=== PATIENT | male | born 1965 | race Caucasian/White ===

== ENCOUNTER → 2019-11-23 | Outpatient (CLI) | payer BC ==
[~2019-11-23] MED LIST: ALLO100T PO; AMLO25TA PO; IRONTAB3; TYLE325T5 PO
== END ==
LOC: M LABSMTC 09:07
PROVIDERS: ATTEND Anesthesiology
DX: Z03.818 Encounter for observation for suspected exposure to other biological agents ruled out (principal); Z11.59 Encounter for screening for other viral diseases
CPT/HCPCS: C9803; U0003

== ENCOUNTER 2019-11-26 09:02 | Day surgery (SDC) | payer OTHER ==
[~2019-11-26] VITALS: Ht 180.3 cm; Wt 139.3 kg
[~2019-11-26 09:02] MED LIST changes: +LIDOCAINE 2% 100MG/5ML SDV (FOR ANES.) As Ordered ONE; +NS 1,000 ML IV ONE; +propofoL 200 MG/20 ML VIAL As Ordered ONE
[2019-11-26] MEDS ORDERED: propofoL 200 MG/20 ML VIAL As Ordered ONE (10:31)
--- NOTE | 2019-11-26 11:12 | ROOR ---
Patient Name: Omar Brown Procedure Date: 11/26/2019 10:23 AM Date of : 1965 Age: 53 Room: [facility] Gender: Male Note Status: Finalized Procedure: Colonoscopy Indications: Screening patient at increased risk: Family history of 1st-degree relative with colorectal cancer at age 60 years (or older) Providers: Max Caba MD Referring MD: ERIC FLORES MD Requesting Provider: Medicines: Monitored Anesthesia Care Complications: No immediate complications. Procedure: Pre-Anesthesia Assessment: - Prior to the procedure, a History and Physical was performed, and patient medications and allergies were reviewed. The patient is competent. The risks and benefits of the procedure and the sedation options and risks were discussed with the patient. All questions were answered and informed consent was obtained. Patient identification and proposed procedure were verified by the physician, the nurse and the anesthesiologist in the procedure room. Mental Status Examination: alert and oriented. Airway Examination: normal oropharyngeal airway and neck mobility. Respiratory Examination: clear to auscultation. CV Examination: normal. Prophylactic Antibiotics: The patient does not require prophylactic antibiotics. Prior Anticoagulants: The patient has taken no previous anticoagulant or antiplatelet agents. ASA Grade Assessment: II - A patient with mild systemic disease. After reviewing the risks and benefits, the patient was deemed in satisfactory condition to undergo the procedure. The anesthesia plan was to use monitored anesthesia care (MAC). Immediately prior to administration of medications, the patient was re-assessed for adequacy to receive sedatives. The heart rate, respiratory rate, oxygen saturations, blood pressure, adequacy of pulmonary ventilation, and response to care were monitored throughout the procedure. The physical status of the patient was re-assessed after the procedure. The Colonoscope was introduced through the anus and advanced to the terminal ileum, with identification of the appendiceal orifice and IC valve. The colonoscopy was performed without difficulty. The patient tolerated the procedure well. The quality of the bowel preparation was good. The terminal ileum, ileocecal valve, appendiceal orifice, and rectum were photographed. Scope insertion time was 3 minutes. Scope withdrawal time was 9 minutes. The total duration of the procedure was 14 minutes. Findings: The perianal and digital rectal examinations were normal. The terminal ileum appeared normal. Three sessile polyps were found in the descending colon and ascending colon. The polyps were 6 to 8 mm in size. These polyps were removed with a cold snare. Resection and retrieval were complete. For hemostasis, one hemostatic clip was successfully placed. There was no bleeding at the end of the procedure. Verification of patient identification for the specimen was done by the physician and nurse using the patient's name, date and medical record number. Estimated blood loss was minimal. Multiple small and large-mouthed diverticula were found from sigmoid to ascending colon. There was no evidence of diverticular bleeding. Non-bleeding external and internal hemorrhoids were found during retroflexion. The hemorrhoids were large. Impression: - The examined portion of the ileum was normal. - Three 6 to 8 mm polyps in the descending colon and in the ascending colon, removed with a cold snare. Resected and retrieved. Clip was placed. - Moderate diverticulosis from sigmoid to ascending colon. There was no evidence of diverticular bleeding. - Non-bleeding external and internal hemorrhoids. Recommendation: - Patient has a contact number available for emergencies. The signs and symptoms of potential delayed complications were discussed with the patient. Return to normal activities tomorrow. Written discharge instructions were provided to the patient. - High fiber diet. - Continue present medications. - Use fiber, for example Citrucel, Fibercon, Konsyl or Metamucil. - Await pathology results. - Repeat colonoscopy in 3 - 5 years for surveillance based on pathology results. - Telephone GI clinic for pathology results in 2 weeks. - Return to primary care physician. Max Caba MD Max Caba MD 11/26/2019 11:11:30 AM Electronically signed by Max Caba MD Number of Addenda: 0 Note Initiated On: 11/26/2019 10:23 AM Estimated Blood Loss: Estimated blood loss was minimal.
[2019-11-26 11:30] VITALS: BP 148/86
== END 2019-11-26 11:40 | disposition home or self-care (01) ==
LOC: M OPP 09:02
PROVIDERS: ATTEND Internal Medicine Gastroenterology
DX: Z12.11 Encounter for screening for malignant neoplasm of colon (principal); Z80.0 Family history of malignant neoplasm of digestive organs; D12.2 Benign neoplasm of ascending colon; D12.4 Benign neoplasm of descending colon; K64.0 First degree hemorrhoids; K57.30 Diverticulosis of large intestine without perforation or abscess without bleeding; I10 Essential (primary) hypertension; J84.10 Pulmonary fibrosis, unspecified; G47.30 Sleep apnea, unspecified; Z79.899 Other long term (current) drug therapy

== ENCOUNTER → 2020-05-19 | Outpatient (CLI) | payer SELFPAY ==
[~2020-05-19] MED LIST changes: -LIDOCAINE 2% 100MG/5ML SDV (FOR ANES.) As Ordered ONE; -NS 1,000 ML IV ONE; -propofoL 200 MG/20 ML VIAL As Ordered ONE
== END ==
LOC: M LABSMTC 11:54
PROVIDERS: ATTEND Pediatrics
DX: Z20.828 Contact with and (suspected) exposure to other viral communicable diseases (principal)

== ENCOUNTER 2020-05-24 12:55 | Inpatient (IN) | payer OTHER ==
[~2020-05-24] VITALS: Ht 180.3 cm; Wt 137.8 kg
[2020-05-24] MEDS ORDERED: methylPREDNISolone 125MG 2ML VIAL IV ONE (14:15)
[2020-05-24 14:27] LABS: HEMATOCRIT 44.7 % (42.0-52.0); HEMOGLOBIN 14.5 g/dl (13.5-17.5); LYMPH # 0.5 10^3/uL (1.5-5.0); LYMPH % 10.7 % (24.0-44.0); MEAN CORPUSCULAR HEMOGLOBIN 30.3 pg (27.0-33.0); MEAN CORPUSCULAR HGB CONC 32.4 g/dl (32.0-36.5); MEAN CORPUSCULAR VOLUME 93.5 fl (80.0-96.0); MONO # 0.4 10^3/uL (0.0-0.8); MONO % 7.2 % (0.0-5.0); NEUTROPHILS % 81.7 % (36.0-66.0); PLATELET COUNT, AUTOMATED 127 10^3/uL (150-450); RED BLOOD COUNT 4.78 10^6/uL (4.30-6.10); WHITE BLOOD COUNT 4.9 10^3/uL (4.0-10.0)
[2020-05-24 14:39] LABS: INR 0.97; PROTHROMBIN TIME 13.1 SECONDS (12.5-14.3)
[2020-05-24 14:40] LABS: PARTIAL THROMBOPLASTIN TIME 32.7 SECONDS (24.2-38.5)
[2020-05-24 14:44] LABS: D-DIMER QUANT 1084.53 ng/ml (<500)
[2020-05-24 14:45] LABS: RSV AMPLIFICATION NEGATIVE (NEGATIVE)
[2020-05-24 14:57] LABS: ALBUMIN 3.5 GM/DL (3.2-5.2); BILIRUBIN,TOTAL 0.5 MG/DL (0.2-1.0); C REACTIVE PROTEIN QUANTITATIV 6.1 MG/DL (0.00-0.30); CALCIUM LEVEL 7.8 MG/DL (8.5-10.1); CREATININE FOR GFR 1.57 MG/DL (0.70-1.30); GLOMERULAR FILTRATION RATE 48.9 (>56); POTASSIUM SERUM 3.7 MEQ/L (3.5-5.1); TOTAL PROTEIN 7.2 GM/DL (6.4-8.2)
[2020-05-24] MEDS ORDERED: cefTRIAXone SOD 1 GM in D5W MINI-BAG PLUS 50 ML IV ONE (15:00)
[2020-05-24 15:12] LABS: CK-MB VALUE MASS 2.3 NG/ML (<3.6); CPK CREATINE PHOSPHOKINASE 793 U/L (39-308); FERRITIN 962 NG/ML (26-388); LDH LACTATE DEHYDROGENASE 378 U/L (87-241); MAGNESIUM LEVEL 2.3 MG/DL (1.8-2.4); MB/CK RELATIVE INDEX 0.29 (< OR =4); TROPONIN I < 0.02 NG/ML (< 0.10)
[2020-05-24] MEDS: COMBIVENT RESPIMAT 100-20MCG INHALER 4GM INH SCH ×2 (15:20→15:21)
--- NOTE | 2020-05-24 15:26 | REP ---
INDICATION: DYSPNEA/COUGH COMPARISON: None. TECHNIQUE: Portable AP view of the chest FINDINGS: Bilateral opacities primarily noted in the right mid lung and left lower lobe are appreciated. No effusion. No pneumothorax. Visualized portions of the mediastinum are grossly normal although evaluation is limited by portable technique, positioning and underpenetration. IMPRESSION: Bilateral opacities suggesting multifocal pneumonia. Correlation and follow-up is recommended. No prior examinations are available for comparison. <Electronically signed by Jesús Spencer > 05/24/20 [id number]
[2020-05-24] MEDS ORDERED: NS 1,000 ML IV ONE (15:30)
[2020-05-24] MEDS ORDERED: AZITHROMYCIN INJ 500 MG, VIAL MATE ADAPTER 1 EACH in D5W 250 ML IV ONE (16:00)
[2020-05-24] MEDS ORDERED: AMLO1TAB25 PO (16:06)
[2020-05-24] MEDS ORDERED: ZYLO300T6 PO (16:06)
[2020-05-24] MEDS ORDERED: ACET1TAB55 PO (16:07)
[2020-05-24] MEDS ORDERED: NS 1,000 ML IV SCH (17:45)
--- NOTE | 2020-05-24 18:51 | HPEPDOC ---
General Date of Admission May 24, 2020 Date of Service: May 24, 2020 Chief Complaint The patient is a 54-year-old male admitted with a reason for visit of SOB. Source: Patient History of Present Illness Mr. Brown is a 54 year old male with asthma here for worsening shortness of breath and fever who tested positive for COVID 19. 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 He believed he caught it from her. Otherwise, his respiratory symptoms started about 4 days prior to admission. He had worsening cough and dyspnea. He also reported an altered taste and poor oral intact. He started to have fever at home and he came to the ED. While in the ED, he desaturated down to 80% at room air. Currently requiring 6L of oxygen to maintain saturation. CXR demonstrates multifocal pneumonia and he was given ceftriaxone and azithromycin. Mr. Brown will be admitted for COVID pneumonia Home Medications Scheduled Allopurinol (Zyloprim) 300 Mg Tablet, 300 MG PO DAILY, (Reported) Amlodipine Besylate (Amlodipine Besylate) 10 Mg Tablet, 10 MG PO DAILY, (Reported) Scheduled PRN Acetaminophen (Acetaminophen) 325 Mg Tablet, 650 MG PO Q4H PRN for PAIN OR FEVER, (Reported) Allergies Coded Allergies: No Known Allergies (Unverified , 11/19/19) Past Medical History Medical History 1. Hypercholesterolemia 2. Hypertension 3. Exercised induced asthma 4. Sleep apnea 5. Scoliosis 6. Gout Surgical History 1. Colonoscopy x3 Family History Father: Cancer Mother: Cancer Social History * Smoker: Denies Alcohol: occationally (Last drink on ) Drugs: marijuana (Occasional) A-FIB/CHADSVASC A-FIB History Current/History of A-Fib/PAF?: No Review of Systems Constitutional: Reports: Fever Eyes: Reports: Redness ENT: Reports: Head Aches Skin: Denies: Rash Pulmonary: Reports: Dyspnea, Cough Cardiovascular: Reports: Chest Pain (when coughing) Gastrointestinal: Reports: Nausea, Diarrhea; Denies: Abdominal Pain Genitourinary: Denies: Dysuria Hematologic: Denies: Bruising Musculoskeletal: Denies: Joint Pain, Muscle Pain Neurological: Denies: Numbness Physical Examination General Exam: Positive: Alert, Cooperative Eye Exam: Positive: EOMI; Negative: Sclera icteric ENT Exam: Positive: Atraumatic Neck Exam: Positive: Supple Chest Exam: Positive: Rhonchi Heart Exam: Positive: Rate Normal, Regular Rhythm Abdomen Exam: Positive: Normal bowel sounds, Soft, Other (obese); Negative: Tenderness Extremity Exam: Positive: Edema (mild) Neuro Exam: Positive: Cranial Nerves 3-12 NL Psych Exam: Positive: Mental status NL, Mood NL Vital Signs Vital Signs Date Time Temp Pulse Resp B/P (MAP) Pulse Ox O2 Delivery O2 Flow Rate FiO2 05/24/20 15:30 88 120/70 (87) 94 Nasal Cannula 6.0 05/24/20 14:15 18 05/24/20 13:41 99.3 Laboratory Data Labs 24H Laboratory Tests 2 05/24/20 13:47: Anion Gap 8, Glomerular Filtration Rate 48.9L, Calcium Level 7.8L, Total Bilirubin 0.5, Aspartate Amino Transf (AST/SGOT) 79H, Alanine Aminotransferase (ALT/SGPT) 71, Alkaline Phosphatase 39L, C-Reactive Protein, Quantitative 6.10H, Total Protein 7.2, Albumin 3.5, Albumin/Globulin Ratio 0.9 05/24/20 13:52: Coronavirus (COVID-19)(PCR) POSITIVEA, Influenza Type A (RT-PCR) NEGATIVE, Influenza Type B (RT-PCR) NEGATIVE, Respiratory Syncytial Virus (PCR) NEGATIVE 05/24/20 13:53: Prothrombin Time 13.1, Prothromb Time International Ratio 0.97, Activated P artial Thromboplast Time 32.7, Fibrinogen 600H, D-Dimer, Quantitative 1084.53H 05/24/20 14:02: Lactic Acid Level 1.6, Magnesium Level 2.3, Ferritin 962H, Lactate Dehydrogenase 378H, Total Creatine Kinase 793H, Creatine Kinase MB 2.3, Creatine Kinase MB Relative Index 0.29, Troponin I < 0.02 05/24/20 14:18: Immature Granulocyte % (Auto) 0.4, Neutrophils (%) (Auto) 81.7H, Lymphocytes (%) (Auto) 10.7L, Monocytes (%) (Auto) 7.2H, Eosinophils (%) (Auto) 0.0, Basophils (%) (Auto) 0.0, Neutrophils # (Auto) 4.0, Lymphocytes # (Auto) 0.5L, Monocytes # (Auto) 0.4, Eosinophils # (Auto) 0.0, Basophils # (Auto) 0.0, Nucleated Red Blood Cells % (auto) 0.0 05/24/20 15:05: POC pH (Misc Panel) 7.407, POC Base Excess (Misc Panel) -6.0L, POC Saturated Percent O2 (Misc) 92L, POC pO2 (Misc Panel) 62.0L, POC pCO2 (Misc Panel) 30.2L, POC HCO3 (Misc Panel) 19.0L, POC Total CO2 (Misc Panel) 20.0L CBC/BMP Laboratory Tests 05/24/20 13:47 05/24/20 14:18 Microbiology Microbiology 05/24/20 Blood Culture, Received Pending Assessment/Plan Mr. Brown is a 54 year old male with asthma who is here for acute hypoxic respiratory failure secondary to COVID PNA. His respiratory symptoms symptoms started about 4 days prior to arrival in the ED. He desaturated to 80% at room air. He required 6 L nasal cannula. He will be given remdesivir, dexamethasone, and DVT ppx of Lovenox (D-dimer is 1080). X-ray demonstrated multifocal pneumonia. He'll be given ceftriaxone and azithromycin. Plan / VTE VTE Prophylaxis Ordered?: Yes Plan Plan 1. 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 Respiratory symptoms started 4 days prior to ED visit - Supplemental oxygen and supportive care - Remdesivir for 5 days, dexamethasone, Lovenox - Trend inflammatory markers 2. COVID PNA - CXR demonstrates multifocal pneumonia - On Rocephin and Azithromycin 3. JONATAN vs CKD - Unknown creatinine baseline - Creatinine on admission 1.57 - Avoid nephrotoxins and supportive care - IVF for 500L 4. Hypertension - Blood pressure controlled - Continue with amlodipine 5. Gout - No active disease - Continue allopurinol 6. DVT ppx - Lovenox ALEXANDRA OGODRICH DO May 24, 2020 16:23
[2020-05-24] MEDS ORDERED: REMDESIVIR 200 MG in NS 250 ML IV ONE (19:00)
[2020-05-24] MEDS ORDERED: COMBIVENT RESPIMAT 100-20MCG INHALER 4GM INH PRN (19:30)
[2020-05-24 20:15] VITALS: BP 136/81
[2020-05-24 20:30] VITALS: O2SAT 88
[2020-05-24] MEDS ORDERED: SODIUM CHLORIDE 0.9% INJ 10 ML SYR IV ONE (21:00)
[2020-05-25] VITALS (7 sets, daily range): BP systolic 148–177; BP diastolic 87–111
[2020-05-25] MEDS: ACETAMINOPHEN 325 MG TAB PO PRN (05:04)
--- NOTE | 2020-05-25 06:17 | ECGEPIP ---
[facility] - ED Test Date: 2020-05-24 Pat Name: ABHISHEK YEAGER Department: Room: - Gender: Male Bar Host: LUCILLE : 1965 Requested By: RAJAT BARDALES Order Number: [id number] Reading MD: Nura Grace Measurements Intervals [place] Rate: 98 P: -5 GA: 164 QRS: 45 QRSD: 113 T: 48 QT: 374 QTc: 479 Interpretive Statements SINUS RHYTHM MODERATE INTRAVENTRICULAR CONDUCTION DELAY POOR R WAVE PROGRESSION NONSPECIFIC ST T WAVE CHANGES PROLONGED QTC NO PRIOR ECG FOR COMPARISON Electronically Signed on 05-25-2020 6:17:24 EST by Nura Grace
[2020-05-25 07:39] LABS: BASO % 0.2 % (0.0-1.0); HEMOGLOBIN 14.1 g/dl (13.5-17.5); LYMPH # 0.4 10^3/uL (1.5-5.0); LYMPH % 8.4 % (24.0-44.0); MEAN CORPUSCULAR HEMOGLOBIN 30.7 pg (27.0-33.0); MEAN CORPUSCULAR HGB CONC 32.8 g/dl (32.0-36.5); MEAN CORPUSCULAR VOLUME 93.7 fl (80.0-96.0); MONO # 0.3 10^3/uL (0.0-0.8); MONO % 5.7 % (0.0-5.0); NEUTROPHILS # 3.8 10^3/uL (1.5-8.5); PLATELET COUNT, AUTOMATED 127 10^3/uL (150-450); RED BLOOD COUNT 4.59 10^6/uL (4.30-6.10); WHITE BLOOD COUNT 4.4 10^3/uL (4.0-10.0)
[2020-05-25 07:56] LABS: D-DIMER QUANT 863.47 ng/ml (<500)
[2020-05-25 08:00] LABS: BLOOD UREA NITROGEN 21 MG/DL (7-18); C REACTIVE PROTEIN QUANTITATIV 6.03 MG/DL (0.00-0.30); CALCIUM LEVEL 8.4 MG/DL (8.5-10.1); CARBON DIOXIDE LEVEL 23 MEQ/L (21-32); CHLORIDE LEVEL 109 MEQ/L (98-107); CREATININE FOR GFR 1.17 MG/DL (0.70-1.30); FERRITIN 944 NG/ML (26-388); GLOMERULAR FILTRATION RATE > 60.0 (>56); GLUCOSE, FASTING 175 MG/DL (70-100); MAGNESIUM LEVEL 2.4 MG/DL (1.8-2.4); POTASSIUM SERUM 3.4 MEQ/L (3.5-5.1); SODIUM LEVEL 140 MEQ/L (136-145)
[2020-05-25] MEDS: dexameTHASONE 4 MG/ML 1ML VIAL (J1100 PER 1MG) IV SCH (08:31)
[2020-05-25] MEDS: allopurinoL 300 MG TAB PO SCH (08:31)
[2020-05-25] MEDS: amLODIPine 10 MG TAB PO SCH (08:31)
[2020-05-25] MEDS ORDERED: ENOXAPARIN 40MG/0.4ML SYRINGE (J1650 PER 10MG) SC SCH (09:00)
[2020-05-25] MEDS ORDERED: POTASSIUM CHLORIDE 10% LIQ 20 MEQ/15 ML UDC PO ONE (09:00)
--- NOTE | 2020-05-25 12:46 | IPNPDOC ---
Subjective Date Seen The patient was seen on 05/25/20. Subjective Chief Complaint/HPI OBJECTIVE: The patient has more appetite today and ate a little bit of breakfast. He was able to be weaned from 15L Ventimask to 12L and satting at 88%. He does desat to lower 80s w/ exertion. I spoke with patient about trying awake proning for as long as he can tolerate and he is willing to try it. No acute events overnight reported by nursing or patient. He denies fever, chills, abdominal discomfort. PHYSICAL EXAM: VS: see below. Currently on 12L Ventimask satting 88% Constitutional: Awake and alert, in no apparent distress ENT: Sclera are clear. Mucosa is moist. Respiratory: No wheezing, rhonci or rales. Cardiovascular: Regular heart rate no murmurs Gastrointestinal: Abdomen is soft, non distended, non tender, BS present. Musculoskeletal: No lower extremity edema. R Neurologic: No focal neurological deficit. AAO x3, normal affect Skin: Warm, dry, no cyanosis or clubbing IMAGING: see below. CXR demonstrates multifocal pneumonia LABS: see below ASSESSMENT AND PLAN Mr. Brown is a 54 year old male with asthma who is here for acute hypoxic respiratory failure secondary to COVID PNA. His respiratory symptoms symptoms started about 4 days prior to arrival in the ED. He desaturated to 80% at room air. He required 6 L nasal cannula. He will be given remdesivir, dexamethasone, and DVT ppx of Lovenox (D-dimer is 1080). X-ray demonstrated multifocal pneumonia. He'll be given ceftriaxone and azithromycin. #Acute hypoxic respiratory failure secondary to COVID PNA - Respiratory symptoms started 4 days prior to ED visit - Supplemental oxygen and supportive care - C/w Remdesivir (day 1) - C/w dexamethasone - C/w trending inflammatory markers - C/w Rocephin and Azithromycin - will repeat a COVID PCR test tomorrow - Will continue to do awake proning as much as pt can tolerate #Asthma - suspect that COVID PNA may exacerbate his asthma; however, no wheezing appreciated on exam - Will c/w home meds - Will continue to monitor O2 saturations - C/w with steroids #JONATAN vs CKD (resolved) - Unknown creatinine baseline - Creatinine on admission 1.57; today's Cr 1.17 - Will D/C fluids today - Avoid nephrotoxins and supportive care - IVF for 500L #Hypertension - Blood pressure controlled - C/w with amlodipine 5. Gout - No active disease - C/w home med allopurinol DVT ppx: lovenox GI ppx: protonix Fluids: none Diet: 2g Na Code status: Full Disposition: C/w proning and wean O2 as tolerated. Saturations improving with proning. Objective Physical Examination General Exam: Positive: Alert, Cooperative Eye Exam: Positive: EOMI; Negative: Sclera icteric ENT Exam: Positive: Atraumatic Neck Exam: Positive: Supple Chest Exam: Positive: Rhonchi Heart Exam: Positive: Rate Normal, Regular Rhythm Abdomen Exam: Positive: Normal bowel sounds, Soft, Other (obese); Negative: Tenderness Extremity Exam: Positive: Edema (mild) Neuro Exam: Positive: Cranial Nerves 3-12 NL Psych Exam: Positive: Mental status NL, Mood NL Assessment /Plan Plan/VTE VTE Prophylaxis Ordered?: Yes VS, I&O, 24H, Fishbone Vital Signs/I&O Vital Signs Date Time Temp Pulse Resp B/P (MAP) Pulse Ox O2 Delivery O2 Flow Rate FiO2 05/25/20 08:31 77 162/92 05/25/20 04:51 99.8 20 90 Venturi Mask 15.0 I&O- Last 24 Hours up to 6 AM 05/25/20 06:00 Intake Total 760 ml Output Total 275 ml Balance 485 ml Laboratory Data 24H LABS Laboratory Tests 2 05/24/20 13:47: Anion Gap 8, Glomerular Filtration Rate 48.9L, Calcium Level 7.8L, Total Bilirubin 0.5, Aspartate Amino Transf (AST/SGOT) 79H, Alanine Aminotransferase (ALT/SGPT) 71, Alkaline Phosphatase 39L, C-Reactive Protein, Quantitative 6.10H, Total Protein 7.2, Albumin 3.5, Albumin/Globulin Ratio 0.9 05/24/20 13:52: Coronavirus (COVID-19)(PCR) POSITIVEA, Influenza Type A (RT-PCR) NEGATIVE, Influenza Type B (RT-PCR) NEGATIVE, Respiratory Syncytial Virus (PCR) NEGATIVE 05/24/20 13:53: Prothrombin Time 13.1, Prothromb Time International Ratio 0.97, Activated Partial Thromboplast Time 32.7, Fibrinogen 600H, D-Dimer, Quantitative 1084.53H 05/24/20 14:02: Lactic Acid Level 1.6, Magnesium Level 2.3, Ferritin 962H, Lactate Dehydrogenase 378H, Total Creatine Kinase 793H, Creatine Kinase MB 2.3, Creatine Kinase MB Relative Index 0.29, Troponin I < 0.02, Procalcitonin 0.13 05/24/20 14:18: Immature Granulocyte % (Auto) 0.4, Neutrophils (%) (Auto) 81.7H, Lymphocytes (%) (Auto) 10.7L, Monocytes (%) (Auto) 7.2H, Eosinophils (%) (Auto) 0.0, Basophils (%) (Auto) 0.0, Neutrophils # (Auto) 4.0, Lymphocytes # (Auto) 0.5L, Monocytes # (Auto) 0.4, Eosinophils # (Auto) 0.0, Basophils # (Auto) 0.0, Nucleated Red Blood Cells % (auto) 0.0 05/24/20 15:05: POC pH (Misc Panel) 7.407, POC Base Excess (Misc Panel) -6.0L, POC Saturated Percent O2 (Misc) 92L, POC pO2 (Misc Panel) 62.0L, POC pCO2 (Misc Panel) 30.2L, POC HCO3 (Misc Panel) 19.0L, POC Total CO2 (Misc Panel) 20.0L 05/24/20 18:47: UA-Zgk-C-Type Natriuretic Peptide 70 05/25/20 06:51: Immature Granulocyte % (Auto) 0.7, Neutrophils (%) (Auto) 85.0H, Lymphocytes (%) (Auto) 8.4L, Monocytes (%) (Auto) 5.7H, Eosinophils (%) (Auto) 0.0, Basophils ( %) (Auto) 0.2, Neutrophils # (Auto) 3.8, Lymphocytes # (Auto) 0.4L, Monocytes # (Auto) 0.3, Eosinophils # (Auto) 0.0, Basophils # (Auto) 0.0, Nucleated Red Blood Cells % (auto) 0.0, Fibrinogen 624H, D-Dimer, Quantitative 863.47H, Anion Gap 8, Glomerular Filtration Rate > 60.0, Calcium Level 8.4L, Magnesium Level 2.4, Ferritin 944H, C-Reactive Protein, Quantitative 6.03H CBC/BMP Laboratory Tests 05/24/20 13:47 05/24/20 14:18 05/25/20 06:51 Microbiology Microbiology 05/24/20 Blood Culture, Received Pending 05/24/20 Blood Culture, Received Pending GME ATTESTATION GME ATTESTATION My faculty preceptor for this patient encounter was physically present during the encounter and was fully available. All aspects of the patient interview, examination, medical decision making process, and medical care plan development were reviewed and approved by the faculty preceptor. The faculty preceptor is aware and concurs with the plan as stated in the body of this note and will attest to such by his/her cosignature. ATTENDING NOTE I, Ronald Walden MD, have independently examined this patient and performed my own physical exam, as well as reviewed the documentation and edited where tenisha price. I have discussed in detail with the resident / student the findings and plan of treatment as documented by the resident / student and edited their note. I agree with their findings and treatment plan and have edited their documentation. Stanford Ferrer DO May 25, 2020 09:07 RONALD WALDEN MD May 28, 2020 15:03
[2020-05-25] MEDS: cefTRIAXone SOD 1 GM in D5W MINI-BAG PLUS 50 ML IV SCH (16:26)
[2020-05-25] MEDS ORDERED: AZITHROMYCIN INJ 500 MG, VIAL MATE ADAPTER 1 EACH in D5W 250 ML IV SCH (16:40)
[2020-05-25] MEDS: REMDESIVIR 100 MG in NS 250 ML IV SCH (19:35)
[2020-05-25] MEDS ORDERED: clonazePAM 0.5 MG TAB PO ONE ×2 (20:15→20:30)
[2020-05-25] MEDS: SODIUM CHLORIDE 0.9% INJ 10 ML SYR IV SCH (20:45)
[2020-05-25] MEDS ORDERED: ENOXAPARIN 80MG/0.8ML SYRINGE (J1650 PER 10MG) SC SCH (22:00)
[2020-05-25 23:10] LABS: ABG BASE EXCESS -1.9 (-2.0-2.0); ABG HCO3 19.1 MEQ/L (22.0-26.0); ABG O2 SATURATION 91.1 % (95.0-99.0); ABG PARTIAL PRESSURE CO2 24.7 mmHg (35.0-45.0); ABG PARTIAL PRESSURE O2 54.8 mmHg (75.0-100.0); ABG STANDARD HCO3 22.7 MEQ/L (22.0-26.0); ABG TOTAL CO2 19.9 MEQ/L (22.0-29.0); ABG pH (ARTERIAL) 7.507 UNITS (7.350-7.450)
[2020-05-26] VITALS (18 sets, daily range): BP systolic 126–205; BP diastolic 75–111; O2SAT 88–90
[2020-05-26] MEDS ORDERED: LABETALOL 100MG/20ML VIAL IV PRN (00:30)
[2020-05-26] MEDS ORDERED: ONDANSETRON 4MG/2ML VIAL IV ONE (01:45)
[2020-05-26 05:18] LABS: BASO % 0.1 % (0.0-1.0); HEMATOCRIT 45.1 % (42.0-52.0); HEMOGLOBIN 14.7 g/dl (13.5-17.5); LYMPH # 0.5 10^3/uL (1.5-5.0); LYMPH % 5.5 % (24.0-44.0); MEAN CORPUSCULAR HEMOGLOBIN 30.1 pg (27.0-33.0); MEAN CORPUSCULAR HGB CONC 32.6 g/dl (32.0-36.5); MEAN CORPUSCULAR VOLUME 92.4 fl (80.0-96.0); MONO # 0.6 10^3/uL (0.0-0.8); MONO % 5.7 % (0.0-5.0); NEUTROPHILS # 8.7 10^3/uL (1.5-8.5); NEUTROPHILS % 88.3 % (36.0-66.0); PLATELET COUNT, AUTOMATED 194 10^3/uL (150-450); RED BLOOD COUNT 4.88 10^6/uL (4.30-6.10); WHITE BLOOD COUNT 9.8 10^3/uL (4.0-10.0)
[2020-05-26 05:53] LABS: BLOOD UREA NITROGEN 20 MG/DL (7-18); CALCIUM LEVEL 8.3 MG/DL (8.5-10.1); CARBON DIOXIDE LEVEL 23 MEQ/L (21-32); CHLORIDE LEVEL 112 MEQ/L (98-107); CREATININE FOR GFR 1.17 MG/DL (0.70-1.30); FERRITIN 973 NG/ML (26-388); GLOMERULAR FILTRATION RATE > 60.0 (>56); GLUCOSE, FASTING 182 MG/DL (70-100); MAGNESIUM LEVEL 2.1 MG/DL (1.8-2.4); SODIUM LEVEL 142 MEQ/L (136-145)
[2020-05-26 05:59] LABS: D-DIMER QUANT 1209.52 ng/ml (<500)
[2020-05-26] MEDS: allopurinoL 300 MG TAB PO SCH (08:07)
[2020-05-26] MEDS: amLODIPine 10 MG TAB PO SCH (08:07)
[2020-05-26] MEDS: dexameTHASONE 4 MG/ML 1ML VIAL (J1100 PER 1MG) IV SCH (08:07)
[2020-05-26] MEDS ORDERED: FUROSEMIDE 20MG/2ML VIAL (J1940) IV ONE (11:30)
[2020-05-26] MEDS ORDERED: ENOXAPARIN 40MG/0.4ML SYRINGE (J1650 PER 10MG) SC SCH (12:00)
[2020-05-26 12:18] LABS: ABG BASE EXCESS -2.1 (-2.0-2.0); ABG HCO3 20.6 MEQ/L (22.0-26.0); ABG O2 SATURATION 87.2 % (95.0-99.0); ABG PARTIAL PRESSURE CO2 30.2 mmHg (35.0-45.0); ABG PARTIAL PRESSURE O2 50.1 mmHg (75.0-100.0); ABG STANDARD HCO3 22.5 MEQ/L (22.0-26.0); ABG TOTAL CO2 21.5 MEQ/L (22.0-29.0); ABG pH (ARTERIAL) 7.451 UNITS (7.350-7.450)
[2020-05-26] MEDS: ACETAMINOPHEN 325 MG TAB PO PRN (16:37)
[2020-05-26] MEDS: cefTRIAXone SOD 1 GM in D5W MINI-BAG PLUS 50 ML IV SCH (16:38)
[2020-05-26] MEDS ORDERED: AZITHROMYCIN INJ 500 MG, VIAL MATE ADAPTER 1 EACH in D5W 250 ML IV SCH (17:00)
--- NOTE | 2020-05-26 18:17 | IPNPDOC ---
Subjective Date Seen The patient was seen on 05/26/20. Subjective Chief Complaint/HPI OBJECTIVE: The overnight team reports that he desatted to low 80s on max vapotherm overnight and transferred him to the ICU for BIPAP. This am, he's satting at 95% on BIPAP machine with IPAP/EPAP settings of 20/10. Per nursing, he desaturates very quickly to the 60s-70s when the BIPAP is taken off for med adminstration. He was also tried on vapotherm again, but could not sustain his saturations above 88%. Patient is currently compliant with the BIPAP machine and also attempting to lay in a decubitus position since he's not able to tolerate proning on his stomach with the machine. He denies any CP, fever, chills, N/V/D. I have called patient's (Monica Brown) and updated her on his disposition. PHYSICAL EXAM: VS: see below. BIPAP Constitutional: Awake and alert and oriented x3, NAD, no accessory muscle use ENT: Sclera are clear. Mucosa is moist. Respiratory: No wheezing, rhonci or rales appreciated Cardiovascular: Regular heart rate no murmurs, gallops, rubs Gastrointestinal: Abdomen is obese, soft, non distended, non tender, BS present Musculoskeletal: No lower extremity edema, full ROM throughout Neurologic: No focal neurological deficit. Normal affect Skin: Warm, dry, no cyanosis or clubbing IMAGING: see below LABS: see below ASSESSMENT AND PLAN This is a 54 year old male with a PMHx of Asthma, who presented to [facility] ER due to worsening SOB and subjective fever. He reports that his symptoms presented 4 day s prior to his arrival in the ED and states that his caught COVID 19 and tested positive so he may have gotten exposed that way. He desats to 80s on RA and was intially able to maintain saturations over 90% with 6L NC. He was started on IV dexamethasone, remdesivir and abx given that his XR also shows multifocal PNA. He continues to require more oxygenation and was satting in the 80% on max setting of vapotherm and the decision was made to transfer the patient to the ICU and have pulmonology on board for further recommendations. He was put on BIPAP and has been satting over 90% ; however, he desats very quickly to 60s-70s when BIPAP is taken off for medication administration. He is enco uraged to continue awake proning; however, he is not very cooperative with awake proning but is willing to try laying in a lateral decubitus position. #Acute hypoxic respiratory failure secondary to COVID PNA - Currently tolerating BIPAP with current settings of: - Will order an ABG - Respiratory symptoms started 4 days prior to ED visit - Supplemental oxygen and supportive care - C/w Remdesivir (day 2) - C/w dexamethasone (day 2) - Will order IV lasix 20mg X1 dose - D-DIMER increased slightly; will continue trending inflammatory markers - C/w Rocephin and Azithromycin - Will continue to do awake proning as much as pt can tolerate - Therapeutic lovenox 70mg BID for anticog #Hypertension - He was hypertensive this am 155/93; IV labetelol given - C/w PO norvasc and amlodipine #Asthma - Not in acute exacerbation - C/w Combivent PRN - C/w with dexamethasone #JONATAN vs CKD (resolved) - Unknown creatinine baseline - Creatinine on admission 1.57; today's Cr 1.17 - Avoid nephrotoxins and supportive care #Gout - No active disease - C/w home med allopurinol DVT ppx: lovenox 70mg BID GI ppx: protonix Fluids: none Diet: 2g Na Code status: Full Disposition: Continue BIPAP and encourage proning as much as possible. Will continue to trend inflammatory markers. Objective Physical Examination General Exam: Positive: Alert, Cooperative Eye Exam: Positive: EOMI; Negative: Sclera icteric ENT Exam: Positive: Atraumatic Neck Exam: Positive: Supple Chest Exam: Positive: Rhonchi Heart Exam: Positive: Rate Normal, Regular Rhythm Abdomen Exam: Positive: Normal bowel sounds, Soft, Other (obese); Negative: Tenderness Extremity Exam: Positive: Edema (mild) Neuro Exam: Positive: Cranial Nerves 3-12 NL Psych Exam: Positive: Mental status NL, Mood NL Assessment /Plan Plan/VTE VTE Prophylaxis Ordered?: Yes VS, I&O, 24H, Fishbone Vital Signs/I&O Vital Signs Date Time Temp Pulse Resp B/P (MAP) Pulse Ox O2 Delivery O2 Flow Rate FiO2 05/26/20 17:08 90 05/26/20 12:00 98.1 106 29 127/75 (92) 85 NIPPV (BIPAP/CPAP) 05/25/20 20:00 35.0 I&O- Last 24 Hours up to 6 AM 05/26/20 06:00 Intake Total 1115 ml Output Total 750 ml Balance 365 ml Laboratory Data 24H LABS Laboratory Tests 2 05/25/20 23:00: Blood Gas Bicarbonate Standard 22.7, Arterial Blood pH 7.507H, Arterial Blood Partial Pressure CO2 24.7L, Arterial Blood Partial Pressure O2 54.8L, Arterial Blood Total CO2 19.9L, Arterial Blood HCO3 19.1L, Arterial Blood Base Excess - 1.9, Arterial Blood Oxygen Saturation 91.1L 05/26/20 05:12: Immature Granulocyte % (Auto) 0.4, Neutrophils (%) (Auto) 88.3H, Lymphocytes (%) (Auto) 5.5L, Monocytes (%) (Auto) 5.7H, Eosinophils (%) (Auto) 0.0, Basophils (%) (Auto) 0.1, Neutrophils # (Auto) 8.7H, Lymphocytes # (Auto) 0.5L, Monocytes # (Auto) 0.6, Eosinophils # (Auto) 0.0, Basophils # (Auto) 0.0, Nucleated Red B lood Cells % (auto) 0.0, Fibrinogen 572H, D-Dimer, Quantitative 1209.52H, Anion Gap 7L, Glomerular Filtration Rate > 60.0, Calcium Level 8.3L, Magnesium Level 2.1, Ferritin 973H, C-Reactive Protein, Quantitative 4.20H, Procalcitonin 0.09 05/26/20 12:06: Blood Gas Bicarbonate Standard 22.5, Arterial Blood pH 7.451H, Arterial Blood Partial Pressure CO2 30.2L, Arterial Blood Partial Pressure O2 50.1L, Arterial Blood Total CO2 21.5L, Arterial Blood HCO3 20.6L, Arterial Blood Base Excess - 2.1L, Arterial Blood Oxygen Saturation 87.2L CBC/BMP Laboratory Tests 05/26/20 05:12 Microbiology Microbiology 05/24/20 Blood Culture - Preliminary, Resulted No growth after 24 hours . All specim... 05/24/20 Blood Culture - Preliminary, Resulted No Growth after 48 hours. All Specime... GME ATTESTATION GME ATTESTATION My faculty preceptor for this patient encounter was physically present during t he encounter and was fully available. All aspects of the patient interview, examination, medical decision making process, and medical care plan development were reviewed and approved by the faculty preceptor. The faculty preceptor is aware and concurs with the plan as stated in the body of this note and will attest to such by his/her cosignature. ATTENDING NOTE I, Ronald Walden MD, have independently examined this patient and performed my own physical exam, as well as reviewed the documentation and edited where necessary. I have discussed in detail with the resident / student the findings and plan of treatment as documented by the resident / student and edited their note. I agree with their findings and treatment plan and have edited their documentation. Stanford Ferrer DO May 26, 2020 17:23 RONALD WALDEN MD May 28, 2020 15:03
[2020-05-26] MEDS: ENOXAPARIN 80MG/0.8ML SYRINGE (J1650 PER 10MG) SC SCH (19:36)
[2020-05-26] MEDS: REMDESIVIR 100 MG in NS 250 ML IV SCH (19:36)
[2020-05-26] MEDS: SODIUM CHLORIDE 0.9% INJ 10 ML SYR IV SCH (20:37)
[2020-05-27] VITALS: BP 147/92
[2020-05-27 04:00] VITALS: BP 165/99
[2020-05-27 05:11] LABS: BASO % 0.2 % (0.0-1.0); HEMATOCRIT 47.4 % (42.0-52.0); HEMOGLOBIN 15.2 g/dl (13.5-17.5); LYMPH # 0.6 10^3/uL (1.5-5.0); LYMPH % 6.3 % (24.0-44.0); MEAN CORPUSCULAR HEMOGLOBIN 30.2 pg (27.0-33.0); MEAN CORPUSCULAR HGB CONC 32.1 g/dl (32.0-36.5); MEAN CORPUSCULAR VOLUME 94.2 fl (80.0-96.0); MONO # 0.6 10^3/uL (0.0-0.8); MONO % 6.1 % (0.0-5.0); NEUTROPHILS # 8.8 10^3/uL (1.5-8.5); NEUTROPHILS % 86.5 % (36.0-66.0); PLATELET COUNT, AUTOMATED 207 10^3/uL (150-450); RED BLOOD COUNT 5.03 10^6/uL (4.30-6.10); WHITE BLOOD COUNT 10.1 10^3/uL (4.0-10.0)
[2020-05-27 05:35] LABS: D-DIMER QUANT 1185.56 ng/ml (<500)
[2020-05-27 05:39] LABS: BLOOD UREA NITROGEN 25 MG/DL (7-18); C REACTIVE PROTEIN QUANTITATIV 5.19 MG/DL (0.00-0.30); CALCIUM LEVEL 7.9 MG/DL (8.5-10.1); CARBON DIOXIDE LEVEL 31 MEQ/L (21-32); CHLORIDE LEVEL 111 MEQ/L (98-107); CREATININE FOR GFR 1.27 MG/DL (0.70-1.30); FERRITIN 997 NG/ML (26-388); GLOMERULAR FILTRATION RATE > 60.0 (>56); GLUCOSE, FASTING 152 MG/DL (70-100); MAGNESIUM LEVEL 2.4 MG/DL (1.8-2.4); POTASSIUM SERUM 4.2 MEQ/L (3.5-5.1); SODIUM LEVEL 145 MEQ/L (136-145)
[2020-05-27 08:00] VITALS: BP 122/58
[2020-05-27] MEDS: dexameTHASONE 4 MG/ML 1ML VIAL (J1100 PER 1MG) IV SCH (08:10)
[2020-05-27] MEDS: allopurinoL 300 MG TAB PO SCH (08:10)
[2020-05-27] MEDS: amLODIPine 10 MG TAB PO SCH (08:13)
[2020-05-27] MEDS: ENOXAPARIN 80MG/0.8ML SYRINGE (J1650 PER 10MG) SC SCH ×2 (08:13→19:38)
[2020-05-27] MEDS ORDERED: CISATRACURIUM 200 MG in NS 480 ML IV SCH (08:45)
[2020-05-27 12:00] VITALS: BP 148/94
--- NOTE | 2020-05-27 13:08 | IPNPDOC ---
Text Note Date of Service The patient was seen on 05/27/20. NOTE SUBJECTIVE: -Remains on BIPAP on 100% FiO2 at 20/10 -Afebrile PHYSICAL EXAM: VS: see below. BIPAP at 100% FiO2 and 20/10 Constitutional: NAD, alert, awake ENT: Sclera are clear. Mucosa is moist. Respiratory: No wheezing, rhonchi or rales appreciated, diminished breath sounds throughout Cardiovascular: Regular heart rate no murmurs, gallops, rubs Gastrointestinal: Abdomen is obese, normoactive sounds, soft, non distended, non tender Musculoskeletal: No lower extremity edema, full ROM throughout Neurologic: No focal neurological deficit. Skin: Warm, dry, no cyanosis or clubbing IMAGING: see below LABS: reviewed. see below ASSESSMENT: 54 year old M with a history of asthma and morbid obesity who is admitted for COVID-19 PNA with severe hypoxemic respiratory failure. #Acute hypoxic respiratory failure secondary to COVID PNA with a history of asthma - Currently tolerating BIPAP with current settings of: 20/10 at 100% FiO2. Because BiPAP setting are high and FiO2 is already at 100%, will discuss case with Dr. Rasmussen, as I would like to proactively consult pulm with the next and only option would be intubation if hypoxemia worsens. - C/w Remdesivir (day 3) - C/w dexamethasone (day 3) - Continue trending inflammatory markers - C/w Rocephin but will consider discontinuing given negative procalcitonin. Trending procalcitonin - Lovenox 70mg BID for anticog. Despite no evidence of actual PE, in speaking with Dr. Walden, Dr. Rasmussen had strongly recommended fully anticoagulating given the severe HRF - encourage awake proning as much as possibly tolerated #Hypertension - C/w PO norvasc and amlodipine #Asthma - Not in acute exacerbation - C/w Combivent PRN - C/w with dexamethasone #JONATAN vs CKD (resolved) - Avoid nephrotoxins and supportive care #Gout - No active disease - C/w home med allopurinol DVT ppx: lovenox 70mg BID GI ppx: protonix Fluids: none Diet: 2g Na Code status: Full Disposition: ICU to continue BIPAP and encourage awake proning as much as possibly tolerated VS,Fishbone, I+O VS, Fishbone, I+O Laboratory Tests 05/27/20 05:02 Vital Signs Date Time Temp Pulse Resp B/P (MAP) Pulse Ox O2 Delivery O2 Flow Rate FiO2 05/27/20 08:13 101 122/58 05/27/20 04:00 99.1 26 91 NIPPV (BIPAP/CPAP) 100 05/25/20 20:00 35.0 I&O- Last 24 Hours up to 6 AM 05/27/20 06:00 Intake Total 795 ml Output Total 1000 ml Balance -205 ml MINERVA ONEIL MD May 27, 2020 09:37
[2020-05-27] MEDS: cefTRIAXone SOD 1 GM in D5W MINI-BAG PLUS 50 ML IV SCH (16:00)
[2020-05-27] MEDS: REMDESIVIR 100 MG in NS 250 ML IV SCH (19:37)
[2020-05-27 20:00] VITALS: BP 160/86
[2020-05-27] MEDS: SODIUM CHLORIDE 0.9% INJ 10 ML SYR IV SCH (21:29)
[2020-05-28] VITALS (8 sets, daily range): BP systolic 133–178; BP diastolic 89–106; O2SAT 88–91
[2020-05-28 05:42] LABS: BASO % 0.1 % (0.0-1.0); HEMATOCRIT 47.1 % (42.0-52.0); HEMOGLOBIN 15.3 g/dl (13.5-17.5); LYMPH # 0.4 10^3/uL (1.5-5.0); LYMPH % 3.3 % (24.0-44.0); MEAN CORPUSCULAR HEMOGLOBIN 30.7 pg (27.0-33.0); MEAN CORPUSCULAR HGB CONC 32.5 g/dl (32.0-36.5); MEAN CORPUSCULAR VOLUME 94.6 fl (80.0-96.0); MONO # 0.5 10^3/uL (0.0-0.8); MONO % 3.8 % (0.0-5.0); NEUTROPHILS % 91.7 % (36.0-66.0); PLATELET COUNT, AUTOMATED 248 10^3/uL (150-450); RED BLOOD COUNT 4.98 10^6/uL (4.30-6.10)
[2020-05-28 06:10] LABS: ALBUMIN 3.1 GM/DL (3.2-5.2); ALT/SGPT 94 U/L (12-78); BILIRUBIN,TOTAL 0.8 MG/DL (0.2-1.0); BLOOD UREA NITROGEN 27 MG/DL (7-18); C REACTIVE PROTEIN QUANTITATIV 5.45 MG/DL (0.00-0.30); CALCIUM LEVEL 8.5 MG/DL (8.5-10.1); CARBON DIOXIDE LEVEL 26 MEQ/L (21-32); CHLORIDE LEVEL 109 MEQ/L (98-107); CHOLESTEROL LEVEL 90 MG/DL (< 200); CPK CREATINE PHOSPHOKINASE 351 U/L (39-308); CREATININE FOR GFR 1.18 MG/DL (0.70-1.30); FERRITIN 1292 NG/ML (26-388); GLOMERULAR FILTRATION RATE > 60.0 (>56); GLUCOSE, FASTING 144 MG/DL (70-100); LDH LACTATE DEHYDROGENASE 719 U/L (87-241); MAGNESIUM LEVEL 2.3 MG/DL (1.8-2.4); POTASSIUM SERUM 3.7 MEQ/L (3.5-5.1); SODIUM LEVEL 141 MEQ/L (136-145); TOTAL PROTEIN 7.9 GM/DL (6.4-8.2); TRIGLYCERIDES LEVEL 118 MG/DL (<150)
[2020-05-28 06:12] LABS: D-DIMER QUANT 1895.56 ng/ml (<500)
[2020-05-28] MEDS: amLODIPine 10 MG TAB PO SCH (07:38)
[2020-05-28] MEDS: allopurinoL 300 MG TAB PO SCH (07:38)
[2020-05-28] MEDS: ENOXAPARIN 80MG/0.8ML SYRINGE (J1650 PER 10MG) SC SCH ×2 (07:39→20:16)
--- NOTE | 2020-05-28 10:37 | REP ---
INDICATION: worsening hypoxemia COMPARISON: 05/24/2020 TECHNIQUE: Portable AP view of the chest FINDINGS: Examination is limited by portable technique, underpenetration and poor inspiratory effort as well as positioning. Increased opacities are suspected in the left mid lung zone. Underlying opacities in the right midlung zone and left perihilar/infrahilar region again noted. No obvious effusion. No pneumothorax. IMPRESSION: Bilateral opacities appear somewhat increased in the left mid lung zone. <Electronically signed by Jesús Spencer > 05/28/20 1036
[2020-05-28] MEDS: dexameTHASONE 20MG/5ML VIAL (J1100 PER 1MG) IV SCH (11:08)
[2020-05-28] MEDS ORDERED: guaiFENesin SYRUP 200 MG/10 ML UDC PO PRN (11:30)
--- NOTE | 2020-05-28 12:35 | CCN ---
CRITICAL CARE NOTE DATE: 05/28/2020 The patient is seen in the intensive care unit. This is hospital day #4, symptom complex day #8. He is on noninvasive ventilation but is awake and interactive. He is tolerating noninvasive ventilation well. At bedside, his temperature is up at 100.8, pulse rate 115, respirations 28, blood pressure 171/91. Oxygen saturation is now 92%. It was 76% on 90% oxygen. Intake and output for the past 24 hours: 590 in, 1050 out, since midnight 540 in, 500 out. At bedside he is ill appearing. His mucosa is pink. The noninvasive ventilation mask is sealing well. There is no obvious jugular venous distention. Neck is supple. Heart sounds are regular, monitoring show a sinus rhythm. Breath sounds are coarse with scattered rhonchi bilaterally. Chest is symmetric. Diaphragm motion is diminished. Abdomen is soft and obese, and the extremities show no significant edema. DIAGNOSTIC STUDIES: His sodium is 141, potassium is 3.7, chloride 109, CO2 of 26, BUN is 27, creatinine is down slightly at 1.18, glucose is 141. The calcium is 8.5 and an albumin of 3.1. Phosphorus is 3. His ferritin is up at 1292. Fibrinogen is up at 624, and CRP is up at 5.45. His LDH is also up at 719. AST is 102, ALT 94. D-dimer is 1895. On medications review, he is receiving Lovenox 70 mg every 12 hours, remdesivir 100 mg every day; this is day #4. Ceftriaxone 1 gram every 24 hours, day #4, allopurinol 30 mg a day, Norvasc 10 mg daily, Combivent four times a day as needed, and acetaminophen 650 every 4 as needed. He had been receiving dexamethasone. It feel off the MAR this morning. Diagnostic imaging was updated at the patient's bedside. I reviewed the image. Formal report is pending. I see no new infiltrate, but there may be some increase in prominence of the left lower lobe infiltrate previously identified. On microbiology review, his COVID study was positive on 05/24/2019. He is not producing sputum for a culture. The primary problem requiring critical attention is COVID pneumonia with hypoxic respiratory failure. His inflammatory markers are all up. We will continue with dexamethasone. Dose was missed this morning. We will make up that dose, and if the inflammatory markers persist, it may be necessary to institute monoclonal antibody therapy in a more targeted way. This is day #4 of remdesivir. He is tolerating noninvasive ventilation, and his minute ventilation is good. We will continue to closely monitor his response. Hypercoagulable state related to COVID. Patient is on weight-based Lovenox, and there is no evidence of active bleeding. Hemoglobin and hematocrit are stable. Secondary bacterial infection is of significant concern given the slight elevation in white cell count with the 91% neutrophil percentage as well as the slight increase in prominence of the left lower lobe infiltrate. He has been on ceftriaxone. I believe there may be an issue of secretion clearance. We will add mucolytics and if he is able to produce one, we will obtain a sputum culture. Deep venous thrombosis (DVT) prophylaxis is in place with Lovenox. Ulcer prophylaxis will be initiated with Protonix. The patient's condition is critical. Intensive care unit (ICU) care is appropriate. There was 97 minutes spent in the provision of bedside critical care and coordination exclusive of procedure time. FREEMAN
[2020-05-28] MEDS: PANTOPRAZOLE 40MG TAB (PROTONIX) PO SCH (14:05)
--- NOTE | 2020-05-28 14:33 | IPNPDOC ---
Text Note Date of Service The patient was seen on 05/28/20. NOTE SUBJECTIVE: -Remains on BIPAP on 95% FiO2 at 20/10 -Low grade temp to 100.2 this morning PHYSICAL EXAM: VS: see below. BIPAP at 95% FiO2 and 20/10 Constitutional: NAD, alert, awake ENT: Sclera are clear. Mucosa is moist. Respiratory: No wheezing, rhonchi or rales appreciated, diminished breath sounds throughout Cardiovascular: Regular heart rate no murmurs, gallops, rubs Gastrointestinal: Abdomen is obese, normoactive sounds, soft, non distended, non tender Musculoskeletal: No lower extremity edema, full ROM throughout Neurologic: No focal neurological deficit. Skin: Warm, dry, no cyanosis or clubbing IMAGING: see below LABS: reviewed. see below ASSESSMENT: 54 year old M with a history of asthma and morbid obesity who is admitted for COVID-19 PNA with severe hypoxemic respiratory failure. #Acute hypoxic respiratory failure secondary to COVID PNA with a history of asthma - Currently tolerating BIPAP with current settings of: 20/10 at 100% FiO2. Because BiPAP setting are high and FiO2 is already at 100%, will discuss case with Dr. Rasmussen, as I would like to proactively consult pulm with the next and only option would be intubation if hypoxemia worsens. - C/w Remdesivir (day 4) - C/w dexamethasone (day 4) - Continue trending inflammatory markers - C/w Rocephin given poor pulm reserve despite low procal, recommended by pulm - Lovenox 70mg BID for anticog. Despite no evidence of actual PE, in speaking with Dr. Walden, Dr. Rasmussen had strongly recommended fully anticoagulating given the severe HRF - encourage awake proning as much as possibly tolerated - Dr. Rasmussen onboard #Hypertension - C/w PO norvasc and amlodipine #Asthma - Not in acute exacerbation - C/w Combivent PRN - C/w with dexamethasone #JONATAN vs CKD (resolved) - Avoid nephrotoxins and supportive care #Gout - No active disease - C/w home med allopurinol DVT ppx: lovenox 70mg BID GI ppx: protonix Fluids: none Diet: 2g Na Code status: Full Disposition: ICU to continue BIPAP and encourage awake proning as much as possibly tolerated VS,[place]ronbone, I+O VS, Fishbone, I+O Laboratory Tests 05/28/20 05:24 Vital Signs Date Time Temp Pulse Resp B/P (MAP) Pulse Ox O2 Delivery O2 Flow Rate FiO2 05/28/20 08:00 100.1 115 28 171/91 (117) 76 NIPPV (BIPAP/CPAP) 95 05/25/20 20:00 35.0 I&O- Last 24 Hours up to 6 AM 05/28/20 06:00 Intake Total 1020 ml Output Total 1650 ml Balance -630 ml MINERVA ONEIL MD May 28, 2020 09:22
[2020-05-28] MEDS: cefTRIAXone SOD 1 GM in D5W MINI-BAG PLUS 50 ML IV SCH (16:00)
[2020-05-28] MEDS: SODIUM CHLORIDE 0.9% INJ 10 ML SYR IV SCH (20:16)
[2020-05-28] MEDS: REMDESIVIR 100 MG in NS 250 ML IV SCH (20:16)
[2020-05-29] VITALS (9 sets, daily range): BP systolic 129–152; BP diastolic 83–102; O2SAT 90–95
[2020-05-29 05:41] LABS: BASO % 0.2 % (0.0-1.0); HEMATOCRIT 48.3 % (42.0-52.0); HEMOGLOBIN 15.1 g/dl (13.5-17.5); LYMPH # 0.5 10^3/uL (1.5-5.0); LYMPH % 3.6 % (24.0-44.0); MEAN CORPUSCULAR HGB CONC 31.3 g/dl (32.0-36.5); MEAN CORPUSCULAR VOLUME 95.8 fl (80.0-96.0); MONO # 0.3 10^3/uL (0.0-0.8); MONO % 2.3 % (0.0-5.0); NEUTROPHILS # 11.9 10^3/uL (1.5-8.5); NEUTROPHILS % 92.7 % (36.0-66.0); PLATELET COUNT, AUTOMATED 253 10^3/uL (150-450); RED BLOOD COUNT 5.04 10^6/uL (4.30-6.10); WHITE BLOOD COUNT 12.8 10^3/uL (4.0-10.0)
[2020-05-29 06:01] LABS: D-DIMER QUANT 2684.52 ng/ml (<500)
[2020-05-29 06:15] LABS: ALBUMIN 2.9 GM/DL (3.2-5.2); ALT/SGPT 86 U/L (12-78); BILIRUBIN,TOTAL 0.6 MG/DL (0.2-1.0); BLOOD UREA NITROGEN 31 MG/DL (7-18); CALCIUM LEVEL 8.2 MG/DL (8.5-10.1); CARBON DIOXIDE LEVEL 26 MEQ/L (21-32); CHLORIDE LEVEL 109 MEQ/L (98-107); CHOLESTEROL LEVEL 84 MG/DL (< 200); CPK CREATINE PHOSPHOKINASE 357 U/L (39-308); CREATININE FOR GFR 1.31 MG/DL (0.70-1.30); FERRITIN 1683 NG/ML (26-388); GLOMERULAR FILTRATION RATE > 60.0 (>56); GLUCOSE, FASTING 137 MG/DL (70-100); LDH LACTATE DEHYDROGENASE 827 U/L (87-241); MAGNESIUM LEVEL 2.7 MG/DL (1.8-2.4); PHOSPHORUS LEVEL 2.9 MG/DL (2.5-4.9); POTASSIUM SERUM 4.2 MEQ/L (3.5-5.1); SODIUM LEVEL 144 MEQ/L (136-145); TRIGLYCERIDES LEVEL 113 MG/DL (<150)
[2020-05-29] MEDS: ENOXAPARIN 80MG/0.8ML SYRINGE (J1650 PER 10MG) SC SCH ×2 (07:31→20:32)
[2020-05-29] MEDS: dexameTHASONE 20MG/5ML VIAL (J1100 PER 1MG) IV SCH (07:31)
[2020-05-29] MEDS: PANTOPRAZOLE 40MG TAB (PROTONIX) PO SCH (07:37)
[2020-05-29] MEDS: amLODIPine 10 MG TAB PO SCH (07:37)
[2020-05-29] MEDS: allopurinoL 300 MG TAB PO SCH (07:37)
[2020-05-29] MEDS ORDERED: cefTRIAXone SOD 1GM VIAL (J0696 PER 250MG) IM SCH (12:15)
[2020-05-29] MEDS ORDERED: ACETAMINOPHEN TAB 650MG DOSE (2X325MG) PO PRN (12:49)
[2020-05-29] MEDS ORDERED: TOCILIZUMAB 800 MG in NS 100 ML IV ONE (14:00)
[2020-05-29] MEDS: cefTRIAXone SOD 1 GM in D5W MINI-BAG PLUS 50 ML IV SCH (14:25)
--- NOTE | 2020-05-29 14:56 | IPNPDOC ---
Text Note Date of Service The patient was seen on 05/29/20. NOTE SUBJECTIVE: -Remains on BIPAP on 95% FiO2 at 20/10 -No clinical changes at this time, remains on mask with episodic awake proning PHYSICAL EXAM: VS: see below. BIPAP at 95% FiO2 and 20/10 Constitutional: NAD, alert, awake ENT: Sclera are clear. Mucosa is moist. Respiratory: No wheezing, rhonchi or rales appreciated, diminished breath sounds throughout Cardiovascular: Regular heart rate no murmurs, gallops, rubs Gastrointestinal: Abdomen is obese, normoactive sounds, soft, non distended, non tender Musculoskeletal: No lower extremity edema, full ROM throughout Neurologic: No focal neurological deficit. Skin: Warm, dry, no cyanosis or clubbing LABS: reviewed. see below Inflammatory markers continue to mildly trend up ASSESSMENT: 54 year old M with a history of asthma and morbid obesity who is admitted for COVID-19 PNA with severe hypoxemic respiratory failure. #Acute hypoxic respiratory failure secondary to COVID PNA with a history of asthma - Currently tolerating BIPAP with current settings of: 20/10 at 100% FiO2. Because BiPAP setting are high and FiO2 is already at 100%, will discuss case with Dr. Rasmussen, as I would like to proactively consult pulm with the next and only option would be intubation if hypoxemia worsens. - C/w Remdesivir (day 5) - C/w dexamethasone (day 1 of 5, second 5 day course) - Continue trending inflammatory markers - C/w Rocephin given poor pulm reserve despite low procal, recommended by pulm - Lovenox 70mg BID for anticog. Despite no evidence of actual PE, in speaking with Dr. Walden, Dr. Rasmussen had strongly recommended fully anticoagulating given the severe HRF - encourage awake proning as much as possibly tolerated - Dr. Rasmussen onboard - f/u SCx #Hypertension - C/w PO norvasc and amlodipine #Asthma - Not in acute exacerbation - C/w Combivent PRN - C/w with dexamethasone #JONATAN vs CKD (resolved) - Avoid nephrotoxins and supportive care #Gout - No active disease - C/w home med allopurinol DVT ppx: lovenox 70mg BID GI ppx: protonix Fluids: none Diet: 2g Na Code status: Full Disposition: ICU to continue BIPAP and encourage awake proning as much as possibly tolerated VS,Fishbone, I+O VS, Fishbone, I+O Laboratory Tests 05/29/20 05:23 Vital Signs Date Time Temp Pulse Resp B/P (MAP) Pulse Ox O2 Delivery O2 Flow Rate FiO2 05/29/20 07:49 95 05/29/20 07:37 121 152/102 05/29/20 07:36 97.5 43 92 NIPPV (BIPAP/CPAP) 05/25/20 20:00 35.0 I&O- Last 24 Hours up to 6 AM 05/29/20 06:00 Intake Total 720 ml Output Total 1250 ml Balance -530 ml MINERVA ONEIL MD May 29, 2020 08:50
--- NOTE | 2020-05-29 15:11 | CCN ---
CRITICAL CARE NOTE DATE: 05/29/2020 SUBJECTIVE: The patient is seen in the intensive care unit on noninvasive ventilation. Tolerance is variable. He is critically ill. OBJECTIVE: VITAL SIGNS: At bedside, his temperature is 97.1. T-max over the past 24 hours 100.1, pulse rate 121, respirations 43, blood pressure 153/102, saturation is 92% on noninvasive ventilation, FiO2 0.95. INTAKE AND OUTPUT: For the past 24 hours 1300 in, 1650 out; since midnight 210 in and 200 out. GENERAL APPEARANCE: He is ill-appearing. HEENT: His mucosa is moist. NECK: Supple and wyatt. There is no obvious jugular venous distention. HEART: Sounds are irregular. LUNGS: Breath sounds diminished with crepitants bilaterally and some dullness in the bases. ABDOMEN: Soft. EXTREMITIES: Show trace, if any, peripheral edema. DIAGNOSTIC STUDIES: White cell count is down slightly at 12.8, hemoglobin stable at 15.1, hematocrit 48, platelet count 253,000. Differential white cell count shows 92.7% neutrophils. His sodium is 144, potassium 4.2, chloride 109, CO2 of 26, BUN 31, creatinine 1.31, glucose 137. Calcium is 8.2 on an albumin of 2.9. His magnesium is 2.7 and ferritin is up today at 1683. The fibrinogen is up slightly at 632. C-reactive protein is up at 11.7 and his LDH is also up at 827. Liver enzymes are slightly improved with AST down to 76 and ALT down to 86. Coagulation studies showed a D-dimer at 2684. Chest imaging done yesterday shows worsening of infiltrates. MEDICATIONS: On medications review, this is day #4 of remdesivir, day #4 of ceftriaxone, day #4 of dexamethasone a dose was given late yesterday. He also receives Lovenox 70 mg q. 12 hours and Protonix. ASSESSMENT AND PLAN: The primarily problem requiring critical attention is COVID pneumonia with hypoxemia. This is his fifth hospital day, his ninth day of symptoms. He is tolerating noninvasive positive pressure ventilation, but his oxygen requirement is quite high. We will encourage proning and as the patient utilizes CPAP at home for obstructive sleep apnea syndrome, we will acquire his home mask as this may improve comfort. His inflammatory markers have all increased today despite remdesivir and dexamethasone. We will initiate targeted therapy with tocilizumab. Secondary bacterial infection His neutrophil percent is up slightly. We will continue with ceftriaxone. Hypercoagulable state of COVID pneumonia The patient is on weight-based Lovenox. There is no clinical evidence of thrombosis nor hemorrhage. Deep vein thrombosis (DVT) prophylaxis is in place with Lovenox. Ulcer prophylaxis is in place with Protonix. The patient's condition is critical. Prognosis is guarded. CRITICAL CARE TIME: 121 minutes was spent in the provision of bedside critical care and coordination, exclusive of any procedure times.
[2020-05-29] MEDS: RAMELTEON 8 MG TAB (ROZEREM) PO PRN (22:19)
[2020-05-30] VITALS (8 sets, daily range): BP systolic 125–139; BP diastolic 81–97; O2SAT 86–90
[2020-05-30 03:44] LABS: BASO % 0.3 % (0.0-1.0); HEMATOCRIT 46.5 % (42.0-52.0); HEMOGLOBIN 14.8 g/dl (13.5-17.5); LYMPH # 0.4 10^3/uL (1.5-5.0); LYMPH % 5.5 % (24.0-44.0); MEAN CORPUSCULAR HEMOGLOBIN 30.5 pg (27.0-33.0); MEAN CORPUSCULAR HGB CONC 31.8 g/dl (32.0-36.5); MEAN CORPUSCULAR VOLUME 95.9 fl (80.0-96.0); MONO # 0.2 10^3/uL (0.0-0.8); MONO % 3.1 % (0.0-5.0); NEUTROPHILS % 89.4 % (36.0-66.0); PLATELET COUNT, AUTOMATED 300 10^3/uL (150-450); RED BLOOD COUNT 4.85 10^6/uL (4.30-6.10); WHITE BLOOD COUNT 7.8 10^3/uL (4.0-10.0)
[2020-05-30 03:56] LABS: INR 1.4; PROTHROMBIN TIME 17.4 SECONDS (12.5-14.3)
[2020-05-30 03:57] LABS: PARTIAL THROMBOPLASTIN TIME 32.6 SECONDS (24.2-38.5)
[2020-05-30 04:30] LABS: ALBUMIN 2.8 GM/DL (3.2-5.2); BILIRUBIN,TOTAL 0.7 MG/DL (0.2-1.0); C REACTIVE PROTEIN QUANTITATIV 13.2 MG/DL (0.00-0.30); CALCIUM LEVEL 8.4 MG/DL (8.5-10.1); CREATININE FOR GFR 1.5 MG/DL (0.70-1.30); GLOMERULAR FILTRATION RATE 51.5 (>56); PHOSPHORUS LEVEL 3.8 MG/DL (2.5-4.9); POTASSIUM SERUM 4.3 MEQ/L (3.5-5.1); TOTAL PROTEIN 7.2 GM/DL (6.4-8.2)
[2020-05-30] MEDS: dexameTHASONE 20MG/5ML VIAL (J1100 PER 1MG) IV SCH (08:56)
[2020-05-30] MEDS: allopurinoL 300 MG TAB PO SCH (08:56)
[2020-05-30] MEDS: PANTOPRAZOLE 40MG TAB (PROTONIX) PO SCH (08:56)
[2020-05-30] MEDS: amLODIPine 10 MG TAB PO SCH (08:58)
[2020-05-30] MEDS: ENOXAPARIN 80MG/0.8ML SYRINGE (J1650 PER 10MG) SC SCH ×2 (08:59→20:13)
[2020-05-30] MEDS ORDERED: ONDANSETRON 4MG/2ML VIAL IV PRN (09:15)
[2020-05-30] MEDS: cefTRIAXone SOD 1 GM in D5W MINI-BAG PLUS 50 ML IV SCH (15:40)
--- NOTE | 2020-05-30 15:42 | IPNPDOC ---
Text Note Date of Service The patient was seen on 05/30/20. NOTE SUBJECTIVE: -Remains on BIPAP on 95% FiO2, no changes in his pulm status in days now PHYSICAL EXAM: VS: see below. BIPAP at 95% FiO2 and 20/10 Constitutional: NAD, alert, awake ENT: Sclera are clear. Mucosa is moist. Respiratory: No wheezing, rhonchi, diminished breath sounds throughout Cardiovascular: Regular heart rate no murmurs, gallops, rubs Gastrointestinal: Abdomen is obese, normoactive sounds, soft, non distended, non tender Musculoskeletal: No lower extremity edema, full ROM throughout Neurologic: No focal neurological deficit. Skin: Warm, dry, no cyanosis or clubbing LABS: reviewed. see below Inflammatory markers continue to mildly trend up, now Cr 1.5 ASSESSMENT: 54 year old M with a history of asthma and morbid obesity who is admitted for COVID-19 PNA with severe hypoxemic respiratory failure. #Acute hypoxic respiratory failure secondary to COVID PNA with a history of asthma - Currently tolerating BIPAP with current settings of: 20/10 at 95% FiO2. Because BiPAP setting are high and FiO2 is already near max, Dr. Scott is onboard - s/p 5d of Remdesivir - C/w dexamethasone (day 2 of 5, second 5 day course) - Continue trending inflammatory markers - C/w Rocephin given poor pulm reserve despite low procal, recommended by pulm - Lovenox 70mg BID for anticog, with poor pulm reserve - encourage awake proning as much as possibly tolerated - Dr. Scott onboard #Hypertension - C/w PO norvasc and amlodipine #Asthma - Not in acute exacerbation - C/w Combivent PRN - C/w with dexamethasone #JONATAN vs CKD, worsening renal function - Avoid nephrotoxins and supportive care -check proBNP, may consider mild diuresis, will discuss with pulm #Gout - No active disease - C/w home med allopurinol DVT ppx: lovenox 70mg BID GI ppx: protonix Fluids: none Diet: 2g Na Code status: Full Disposition: ICU to continue BIPAP and encourage awake proning as much as possibly tolerated VS,Fishbone, I+O VS, Fishbone, I+O Laboratory Tests 05/30/20 03:38 Vital Signs Date Time Temp Pulse Resp B/P (MAP) Pulse Ox O2 Delivery O2 Flow Rate FiO2 05/30/20 07:37 95 05/30/20 04:39 89 BIPAP/CPAP 05/30/20 04:00 98.7 97 30 136/93 (107) 05/25/20 20:00 35.0 I&O- Last 24 Hours up to 6 AM 05/30/20 06:00 Intake Total 1350 ml Output Total 450 ml Balance 900 ml MINERVA ONEIL MD May 30, 2020 08:26
[2020-05-30] MEDS: RAMELTEON 8 MG TAB (ROZEREM) PO PRN (20:13)
[2020-05-31] VITALS: BP 132/111
[2020-05-31 04:00] VITALS: BP 120/76
[2020-05-31 04:39] VITALS: O2SAT 90
[2020-05-31 05:23] LABS: BASO % 0.3 % (0.0-1.0); HEMATOCRIT 49.1 % (42.0-52.0); LYMPH # 0.3 10^3/uL (1.5-5.0); LYMPH % 4.6 % (24.0-44.0); MEAN CORPUSCULAR HEMOGLOBIN 31.1 pg (27.0-33.0); MEAN CORPUSCULAR HGB CONC 32.6 g/dl (32.0-36.5); MEAN CORPUSCULAR VOLUME 95.5 fl (80.0-96.0); MONO # 0.2 10^3/uL (0.0-0.8); NEUTROPHILS # 5.9 10^3/uL (1.5-8.5); NEUTROPHILS % 90.3 % (36.0-66.0); PLATELET COUNT, AUTOMATED 328 10^3/uL (150-450); RED BLOOD COUNT 5.14 10^6/uL (4.30-6.10); WHITE BLOOD COUNT 6.6 10^3/uL (4.0-10.0)
[2020-05-31 05:36] LABS: INR 1.32; PARTIAL THROMBOPLASTIN TIME 27.8 SECONDS (24.2-38.5); PROTHROMBIN TIME 16.7 SECONDS (12.5-14.3)
[2020-05-31 05:48] LABS: ALBUMIN 2.8 GM/DL (3.2-5.2); BILIRUBIN,TOTAL 0.5 MG/DL (0.2-1.0); C REACTIVE PROTEIN QUANTITATIV 6.37 MG/DL (0.00-0.30); CALCIUM LEVEL 8.2 MG/DL (8.5-10.1); CREATININE FOR GFR 1.57 MG/DL (0.70-1.30); GLOMERULAR FILTRATION RATE 48.9 (>56); PHOSPHORUS LEVEL 4.1 MG/DL (2.5-4.9); POTASSIUM SERUM 4.4 MEQ/L (3.5-5.1)
[2020-05-31 08:00] VITALS: BP 120/85
--- NOTE | 2020-05-31 09:09 | CCN ---
CRITICAL CARE NOTE DATE: 05/30/2020 SUBJECTIVE: The patient is seen in the intensive care unit on noninvasive ventilation, hypoxemic with any activity. This is hospital day #6, noninvasive ventilation day #6, symptom day #10. OBJECTIVE: GENERAL APPEARANCE: At bedside, he is able to be up out of bed seated in a chair. VITAL SIGNS: Temperature 98.7. There has been no fever over the past 24 hours. Heart rate 105, respiratory 30, blood pressure 138/59. INTAKE AND OUTPUT: For the past 24 hours, 1300 in and 450 out; since midnight 200 in and 0 out. He is tolerating noninvasive positive pressure ventilation, but becomes profoundly hypoxemic with any movement or displaced under the mask. HEENT: His mucosa is moist. Mask fit is good. NECK: Supple. No meningismus. HEART: Sounds are regular without appreciable murmur. LUNGS: Breath sounds are diminished bilaterally. Coarse crepitant rales in the bases. ABDOMEN: Soft with intact bowel sounds. EXTREMITIES: Show no significant edema. DIAGNOSTIC STUDIES: His white blood cell count is down to 7.8, hemoglobin is 14.8, hematocrit 46.5, and platelet count 300,000. Differential white cell count shows 89% neutrophils. His electrolytes are sodium 140, potassium 4.3, chloride 106, CO2 of 28, BUN is 42, creatinine is up slightly at 1.5, and glucose 150. His calcium is 8.4, phosphorus is 3.8. Ferritin level is up slightly at 1735. His fibrinogen is up slightly at 680. C-reactive protein is also up slightly at 13.2 and his LDH is up at 911. Liver enzymes are stable with an AST of 56, ALT of 71. Review of microbiology data reveals no updated cultures. There were two negative blood cultures on the . Most recent imaging study on the showed bilateral opacities greater in the left base. MEDICATIONS: On review, this is day #5 of remdesivir, day #5 of ceftriaxone, day #5 of dexamethasone. He is receiving Protonix 40 mg a day, Lovenox 70 mg q. 12 hours, and Combivent. ASSESSMENT AND PLAN: The primary problem requiring critical attention is acute hypoxic respiratory failure secondary to COVID pneumonia. The patient is tolerating noninvasive positive pressure ventilation. We will attempt today to change person to Vapotherm to allow him to eat. Inflammatory markers are up somewhat. He has been receiving dexamethasone and received a dose of tocilizumab yesterday. We will continue to monitor these. This is his fifth day of remdesivir. Secondary infectious disease He is on empiric ceftriaxone. There are no fevers. His white cell count is actually improved. Will continue close monitoring and the ceftriaxone for now. Hypercoagulable state related to COVID pneumonia. The patient is on Lovenox. There is no evidence of hemorrhage or thrombosis and his coagulation studies are acceptable. Deep vein thrombosis (DVT) prophylaxis is in place with Lovenox. Ulcer prophylaxis is in place with Protonix. The patient's condition remains critical. Prognosis is guarded. CRITICAL CARE TIME: 106 minutes was spent in the provision of bedside critical care and coordination, excluding any procedure times.
[2020-05-31] MEDS: dexameTHASONE 20MG/5ML VIAL (J1100 PER 1MG) IV SCH (09:32)
[2020-05-31] MEDS: PANTOPRAZOLE 40MG TAB (PROTONIX) PO SCH (09:33)
[2020-05-31] MEDS: ENOXAPARIN 80MG/0.8ML SYRINGE (J1650 PER 10MG) SC SCH ×2 (09:33→19:57)
[2020-05-31] MEDS: amLODIPine 10 MG TAB PO SCH (09:34)
[2020-05-31] MEDS: allopurinoL 300 MG TAB PO SCH (09:34)
--- NOTE | 2020-05-31 12:47 | CCN ---
CRITICAL CARE NOTE DATE: 05/31/2020 SUBJECTIVE: The patient is seen in the intensive care unit critically ill with hypoxemia related to COVID pneumonia. He is for the most part dependent on noninvasive ventilation. This is hospital day #7, noninvasive ventilation day #6. He has had symptoms for ten days. OBJECTIVE: VITAL SIGNS: Temperature is 97, pulse rate 104, respirations 24, blood pressure 120/85, an oxygen flow rate of 95% is yielding a saturation of 90%. INTAKE AND OUTPUT: For the past 24 hours 1110 in and 400 out; since midnight 830 in and 400 out. GENERAL APPEARANCE: He is ill-appearing and somnolent, but arousable, interactive to questions through his noninvasive ventilation mask. NECK: Supple. HEART: Sounds regular. LUNGS: Breath sounds diminished with crepitant rales at the bases. ABDOMEN: Soft, obese. EXTREMITIES: No significant edema. DIAGNOSTIC STUDIES: His white cell count is down to 6.6, hemoglobin 16, hematocrit 49, platelet count 328,000. Differential white cell count shows 90% neutrophils. Electrolytes are sodium 140, potassium 4.4, chloride 104, CO2 of 23, BUN 49, creatinine 1.57, glucose 232. His calcium is 8.2 with an albumin of 2.8, AST 62, ALT 50. Inflammatory markers his ferritin is down at 1578. Fibrinogen is down at 518. C-reactive protein is down at 631 and his LDH is up slightly at 936. PT 16, PTT 27. MEDICATIONS: On review, this is day #6 of ceftriaxone, day #6 of dexamethasone. He is receiving Protonix 40 mg a day, Lovenox 70 mg q. 12 hours, and Combivent. ASSESSMENT AND PLAN: The primary problem requiring critical attention is acute hypoxic respiratory failure secondary to COVID pneumonia. His inflammatory markers are moving in a favorable direction. I suspect that this is related to targeted anti-inflammatory therapy with tocilizumab given 48 hours ago. We will continue with dexamethasone at this point. He has completed his course of remdesivir earlier in the hospital stay. Oxygen requirements remain very high. We were able to get him off to Vapotherm briefly for meals. Secondary infectious disease White count is not elevated and he has had no fever. We are empirically continuing ceftriaxone for at least 7-10 days. Hypercoagulable state related to COVID - There is no evidence of hemorrhage nor thrombosis on physical exam. His coagulation studies are within acceptable limits. We will continue with weight-based Lovenox. Ulcer prophylaxis is in place with Protonix. Deep vein thrombosis (DVT) prophylaxis in place with Lovenox. CRITICAL CARE TIME: 112 minutes was spent in the provision of bedside critical care and coordination, exclusive of any procedure time.
[2020-05-31] MEDS: cefTRIAXone SOD 1 GM in D5W MINI-BAG PLUS 50 ML IV SCH (15:00)
--- NOTE | 2020-05-31 16:56 | IPNPDOC ---
Date Seen The patient was seen on 05/31/20. Progress Note SUBJECTIVE: Patient seen and examined at the bedside in the ICU this morning. He is sitting up in bed using the BiPAP. He tells us that he is somewhat anxious and is very aware that his breathing is labored. He was advised to focus on breathing and to use his incentive spirometer. He was transitioned from high flow nasal cannula to BiPAP yesterday evening. Nursing denies any issues overnight. Otherwise he reports some nonproductive cough, denies worsening shortness of breath or dyspnea on exertion. He does report to episodes of diarrhea yesterday OBJECTIVE PHYSICAL EXAMINATION: VITAL SIGNS: see below GENERAL: Using BiPAP, alert and oriented, in no apparent distress, somewhat anxious but conversant in full sentences. HEENT: PERRL, EOMI, Oral mucous membranes are moist without lesions. NECK: The patient has no noted JVD. No adenopathy is appreciated. No thyromegaly CHEST/LUNGS: There are decreased breath sounds bilaterally with scattered wheezing in the upper lobes, there is symmetric chest rise, no subcutaneous air HEART:Regular rate and rhythm. No murmurs, rubs, or gallops are appreciated. Distal pulses are 2+. No carotid bruits appreciated. ABDOMEN: Soft, nontender, and nondistended. Bowel sounds are positive. No organomegaly is appreciated. No masses are appreciated. There are no peritoneal signs. There is no Rothschild sign. EXTREMITIES: No peripheral edema. There is no focal long bone tenderness or deformity. SKIN: The patients skin is warm and dry, there is a white patch of skin, hypopigmented on the upper back PSYCHIATRIC: AAO x 3, normal mood/affect NEUROLOGIC: No obvious focal deficits LABORATORY DATA, IMAGING STUDIES, MICROBIOLOGY: Please see below. Echocardiogram: None ASSESSMENT AND PLAN: This is a 54-year-old man with history of asthma and morbid obesity who presents with shortness of breath, cough and fever found to have acute hypoxic respiratory failure secondary to COVID19 PNA now admitted to the ICU on BiPAP. PROBLEMS: 1. Acute hypoxic respiratory failure secondary to COVID19 pneumonia: -Patient is somewhat anxious and overbreathing on BiPAP, settings 18/12 and has been titrated down to 85% FiO2 -Status post Remdesivir x 5 days -Continue dexamethasone, day 3/5. This is the second course of dexamethasone -Inflammatory markers: Ferritin trended down to 1578, LDH up to 963, CRP down to 6.37, Fibrinogen down to 518 -Continue Robitussin as needed for cough -Combivent inhaler for shortness of breath -Tylenol as needed for fevers -Zofran as needed for nausea -ICU team consultation in place, appreciate recommendations 2. ? Superimposed bacterial community acquired PNA: -Continue empiric Rocephin (Day #3) -Procal low at 0.18 2. History of asthma: -Likely complicates COVID19 infection -Continue Combivent, Dexamethasone 3. AK I versus CKD:Cr today 1.5, stable from yesterday -Will order UA, Urine lytes 4. Hypertension: -Continue Norvasc, labetalol as needed 5. Gout: -Continue Allopurinol GI prophylaxis: Protonix DVT prophylaxis ordered?: Lovenox 70mg Q12h DISPOSITION: Pending improvement in oxygenation, comanagement with ICU team VS, I&O, 24H, Fishbone Vital Signs/I&O Vital Signs Date Time Temp Pulse Resp B/P (MAP) Pulse Ox O2 Delivery O2 Flow Rate FiO2 05/31/20 09:34 102 120/85 05/31/20 08:00 97.0 24 96 NIPPV (BIPAP/CPAP) 95 05/30/20 15:55 40.0 I&O- Last 24 Hours up to 6 AM 05/31/20 06:00 Intake Total 1710 ml Output Total 600 ml Balance 1110 ml Laboratory Data 24H LABS Laboratory Tests 2 05/31/20 04:59: Immature Granulocyte % (Auto) 1.8, Neutrophils (%) (Auto) 90.3H, Lymphocytes (%) (Auto) 4.6L, Monocytes (%) (Auto) 3.0, Eosinophils (%) (Auto) 0.0, Basophils (%) (Auto) 0.3, Neutrophils # (Auto) 5.9, Lymphocytes # (Auto) 0.3L, Monocytes # (Auto) 0.2, Eosinophils # (Auto) 0.0, Basophils # (Auto) 0.0, Nucleated Red Blood Cells % (auto) 0.0, Prothrombin Time 16.7H, Prothromb Time International Ratio 1.32, Activated Partial Thromboplast Time 27.8, Fibrinogen 518H, Anion Gap 13, Glomerular Filtration Rate 48.9L, Calcium Level 8.2L, Phosphorus Level 4.1, Ferritin 1578H, Total Bilirubin 0.5, Aspartate Amino Transf (AST/SGOT) 60H, Al anine Aminotransferase (ALT/SGPT) 62, Alkaline Phosphatase 50, Lactate Dehydrogenase 963H, Total Creatine Kinase 274, C-Reactive Protein, Quantitative 6.37H, MH-Djn-M-Type Natriuretic Peptide 52, Total Protein 7.0, Albumin 2.8L, Albumin/Globulin Ratio 0.7, Triglycerides Level 269H, Cholesterol Level 111 CBC/BMP Laboratory Tests 05/31/20 04:59 Microbiology Microbiology 05/24/20 Blood Culture - Final, Complete NO GROWTH AFTER 5 DAYS 05/24/20 Blood Culture - Final, Complete NO GROWTH AFTER 5 DAYS GME ATTESTATION GME ATTESTATION My faculty preceptor for this patient encounter was physically present during the encounter and was fully available. All aspects of the patient interview, examination, medical decision making process, and medical care plan development were reviewed and approved by the faculty preceptor. The faculty preceptor is aware and concurs with the plan as stated in the body of this note and will attest to such by his/her cosignature. CARLOS ALBERTO TOMLINSON MD May 31, 2020 15:55
[2020-05-31 18:00] VITALS: BP 143/83
[2020-05-31] MEDS: RAMELTEON 8 MG TAB (ROZEREM) PO PRN (19:56)
[2020-05-31 20:00] VITALS: BP 131/94
[2020-06-01] VITALS: BP 132/82
[2020-06-01 04:00] VITALS: BP 137/71
[2020-06-01 05:18] LABS: BASO % 0.4 % (0.0-1.0); EOS % 0.1 % (0.0-3.0); HEMATOCRIT 49.1 % (42.0-52.0); HEMOGLOBIN 15.7 g/dl (13.5-17.5); LYMPH # 0.4 10^3/uL (1.5-5.0); LYMPH % 4.9 % (24.0-44.0); MEAN CORPUSCULAR HEMOGLOBIN 30.1 pg (27.0-33.0); MEAN CORPUSCULAR VOLUME 94.2 fl (80.0-96.0); MONO # 0.2 10^3/uL (0.0-0.8); MONO % 2.7 % (0.0-5.0); NEUTROPHILS # 6.3 10^3/uL (1.5-8.5); NEUTROPHILS % 89.4 % (36.0-66.0); PLATELET COUNT, AUTOMATED 315 10^3/uL (150-450); RED BLOOD COUNT 5.21 10^6/uL (4.30-6.10); WHITE BLOOD COUNT 7.1 10^3/uL (4.0-10.0)
[2020-06-01 05:31] LABS: INR 1.35
[2020-06-01 05:32] LABS: PARTIAL THROMBOPLASTIN TIME 25.9 SECONDS (24.2-38.5)
[2020-06-01 06:02] LABS: ALBUMIN 2.8 GM/DL (3.2-5.2); BILIRUBIN,TOTAL 0.5 MG/DL (0.2-1.0); C REACTIVE PROTEIN QUANTITATIV 3.12 MG/DL (0.00-0.30); CALCIUM LEVEL 8.5 MG/DL (8.5-10.1); CREATININE FOR GFR 1.42 MG/DL (0.70-1.30); GLOMERULAR FILTRATION RATE 54.9 (>56); PHOSPHORUS LEVEL 3.2 MG/DL (2.5-4.9); POTASSIUM SERUM 4.2 MEQ/L (3.5-5.1); TOTAL PROTEIN 7.3 GM/DL (6.4-8.2)
[2020-06-01 08:00] VITALS: BP 144/87
[2020-06-01] MEDS: PANTOPRAZOLE 40MG TAB (PROTONIX) PO SCH (08:55)
[2020-06-01] MEDS: ENOXAPARIN 80MG/0.8ML SYRINGE (J1650 PER 10MG) SC SCH ×2 (08:55→21:19)
[2020-06-01] MEDS: dexameTHASONE 20MG/5ML VIAL (J1100 PER 1MG) IV SCH (08:55)
[2020-06-01 08:56] VITALS: BP 144/87
[2020-06-01] MEDS: amLODIPine 10 MG TAB PO SCH (08:56)
[2020-06-01] MEDS: allopurinoL 300 MG TAB PO SCH (08:57)
--- NOTE | 2020-06-01 10:35 | REP ---
INDICATION: follow up COMPARISON: 05/28/2020 TECHNIQUE: Portable AP view of the chest FINDINGS: Allowing for differences in technique, bilateral infiltrates are again identified and similar to prior examination. IMPRESSION: Bilateral infiltrates without significant change from prior examination. <Electronically signed by Jesús Spencer > 06/01/20 1030
--- NOTE | 2020-06-01 11:44 | CCN ---
CRITICAL CARE NOTE DATE: 06/01/2020 SUBJECTIVE: The patient is seen in the intensive care unit dependent on noninvasive ventilation. This is hospital day #8. He has had symptoms of COVID pneumonia day #10 and he has been dependent on noninvasive ventilation for eight days. OBJECTIVE: GENERAL APPEARANCE: At bedside, he is awake and responsive. He is ill-appearing. VITAL SIGNS: His temperature is 97. T-max over the past 24 hours 98. Pulse rate 103, respirations 30, blood pressure 144/87, and oxygen at 85% yielding a saturation of 92%. INTAKE AND OUTPUT: For the past 24 hours 1410 in and 1150 out; since midnight 550 in and 900 out. HEENT: His oral mucosa are pink. NECK: Supple. There is no meningismus. No stridor. HEART: Sounds are regular. LUNGS: Breath sounds diminished in the bases with some crepitant rales. ABDOMEN: Soft and obese. EXTREMITIES: Show no significant edema. SKIN: No new skin changes. DIAGNOSTIC STUDIES: White cell count is 7.1, hemoglobin 15.7, hematocrit 49.1, platelet count 315,000. Differential white cell count shows 89% neutrophils. Electrolytes are sodium 138, potassium 4.2, chloride 106, CO2 of 26, BUN 47, creatinine 1.42, glucose 224. Phosphorus is 3.2. His liver enzymes are AST 59 and ALT 92. Inflammatory markers: Fibrinogen is down at 298. Ferritin is up slightly at 1620. LDH is up at 1238. His C-reactive protein is down at 3.12. Calcium is 8.5 on an albumin of 2.8. We obtained chest imaging this morning and on review of the image, there appears to be some more heavy infiltrates in the bases than on his previous study; though comparison is difficult and formal report is pending. MEDICATIONS: On review, he is receiving ceftriaxone 1 gram q. 24 hours day #8. He has completed dexamethasone, remdesivir, and has had a dose of tocilizumab. He is receiving Lovenox 70 mg q. 12 and Combivent. ASSESSMENT AND PLAN: The primary problem requiring critical attention is hypoxic respiratory failure secondary to COVID pneumonia. The patient has been dependent on noninvasive ventilation for the past eight days and remains quite dependent. His oxygenation requirement is high. Minute ventilation is, however, also high. I will reduce his peak and plateau pressures to maintain a more physiologic minute ventilation. His inflammatory markers are mixed. He has received remdesivir, dexamethasone, and has had one dose of tocilizumab. We will continue monitoring inflammatory markers. He has a reflection of disease activity. Secondary infectious disease; the patient has no fever and his white count is not elevated. The neutrophil percent is up slightly and the chest x-ray does show areas of increased density in the bases by my review of the image. The patient is on day #8 of ceftriaxone and we will plan to continue this for at least ten days. Hypercoagulable state related to COVID infection; the patient has no evidence of hemorrhage or thrombosis. His coagulation studies are within acceptable range. We will continue with weight-based Lovenox and check a D-dimer tomorrow. The patient's condition is critical. Prognosis is guarded. CRITICAL CARE TIME: 74 minutes was spent in the provision of bedside critical care and coordination, exclusive of any procedure time.
[2020-06-01 12:00] VITALS: BP 126/81
--- NOTE | 2020-06-01 12:54 | IPNPDOC ---
Date Seen The patient was seen on 06/01/20. Progress Note SUBJECTIVE: Patient seen and examined at the bedside in the ICU this morning. He remains on BiPaP 100% FiO2. He appears comfortable and reports that he feels somewhat better. He denies any abdominal pain or diarrhea at this time. He is eating/drinking well. OBJECTIVE PHYSICAL EXAMINATION: VITAL SIGNS: see below GENERAL: Using BiPAP, alert and oriented, in no apparent distress, somewhat anx ious but conversant in full sentences. HEENT: PERRL, EOMI, Oral mucous membranes are moist without lesions. NECK: The patient has no noted JVD. No adenopathy is appreciated. No thyromegaly CHEST/LUNGS: There are decreased breath sounds bilaterally with scattered wheezing in the upper lobes, there is symmetric chest rise, no subcutaneous air HEART:Regular rate and rhythm. No murmurs, rubs, or gallops are appreciated. Distal pulses are 2+. No carotid bruits appreciated. ABDOMEN: Soft, nontender, and nondistended. Bowel sounds are positive. No organomegaly is appreciated. No masses are appreciated. There are no peritoneal signs. There is no Morrison sign. EXTREMITIES: No peripheral edema. There is no focal long bone tenderness or deformity. SKIN: The patients skin is warm and dry, there is a white patch of skin, hypopigmented on the upper back PSYCHIATRIC: AAO x 3, normal mood/affect NEUROLOGIC: No obvious focal deficits LABORATORY DATA, IMAGING STUDIES, MICROBIOLOGY: Please see below. Echocardiogram: None ASSESSMENT AND PLAN: This is a 54-year-old man with history of asthma and morbid obesity who presents with shortness of breath, cough and fever found to have acute hypoxic respiratory failure secondary to COVID19 PNA now admitted to the ICU on BiPAP. PROBLEMS: 1. Acute hypoxic respiratory failure secondary to COVID19 pneumonia: -Patient is somewhat anxious and overbreathing on BiPAP, settings 18/12 and has been titrated back up to 100% FiO2 -Status post Remdesivir x 5 days -Continue dexamethasone, day 4. This is the second course of dexamethasone -Inflammatory markers: Ferritin up to 1620, LDH up to 1238, CRP down to 3.12 -Continue Robitussin as needed for cough -Combivent inhaler for shortness of breath -Tylenol as needed for fevers -Zofran as needed for nausea -ICU team consultation in place, appreciate recommendations 2. ? Superimposed bacterial community acquired PNA: -Continue empiric Rocephin (Day #4) -Procal measured at 0.18 2. History of asthma: -Likely complicates COVID19 infection -Continue Combivent, Dexamethasone 3. AK I versus CKD:Cr improved today to 1.4 -Will order UA, Urine lytes. Pending 4. Hypertension: -Continue Norvasc, labetalol as needed 5. Gout: -Continue Allopurinol GI prophylaxis: Protonix DVT prophylaxis ordered?: Lovenox 70mg Q12h DISPOSITION: Pending improvement in oxygenation, comanagement with ICU team VS, I&O, 24H, Fishbone Vital Signs/I&O Vital Signs Date Time Temp Pulse Resp B/P (MAP) Pulse Ox O2 Delivery O2 Flow Rate FiO2 06/01/20 07:46 100 06/01/20 04:00 97.7 112 30 137/71 (93) 92 NIPPV (BIPAP/CPAP) 05/30/20 15:55 40.0 I&O- Last 24 Hours up to 6 AM 06/01/20 06:00 Intake Total 1160 ml Output Total 1650 ml Balance -490 ml Laboratory Data 24H LABS Laboratory Tests 2 06/01/20 05:12: Immature Granulocyte % (Auto) 2.5, Neutrophils (%) (Auto) 89.4H, Lymphocytes (%) (Auto) 4.9L, Monocytes (%) (Auto) 2.7, Eosinophils (%) (Auto) 0.1, Basophils (%) (Auto) 0.4, Neutrophils # (Auto) 6.3, Lymphocytes # (Auto) 0.4L, Monocytes # (Auto) 0.2, Eosinophils # (Auto) 0.0, Basophils # (Auto) 0.0, Nucleated Red Blood Cells % (auto) 0.0, Prothrombin Time 17.0H, Prothromb Time International Ratio 1.35, Activated Partial Thromboplast Time 25.9, Fibrinogen 298, Anion Gap 6L, Glomerular Filtration Rate 54.9L, Calcium Level 8.5, Phosphorus Level 3.2#, Ferritin 1620H, Total Bilirubin 0.5, Aspartate Amino Transf (AST/SGOT) 67H, Alanine Aminotransferase (ALT/SGPT) 59, Alkaline Phosphatase 92, Lactate Dehydrogenase 1238H, Total Creatine Kinase 222, C-Reactive Protein, Quantitative 3.12H, ZP-Dzd-F-Type Natriuretic Peptide 87, Total Protein 7.3, Albumin 2.8L, Albumin/Globulin Ratio 0.6, Triglycerides Level 400H, Cholesterol Level 120 CBC/BMP Laboratory Tests 06/01/20 05:12 Microbiology Microbiology 05/24/20 Blood Culture - Final, Complete NO GROWTH AFTER 5 DAYS 05/24/20 Blood Culture - Final, Complete NO GROWTH AFTER 5 DAYS GME ATTESTATION GME ATTESTATION My faculty preceptor for this patient encounter was physically present during the encounter and was fully available. All aspects of the patient interview, examination, medical decision making process, and medical care plan development were reviewed and approved by the faculty preceptor. The faculty preceptor is aware and concurs with the plan as stated in the body of this note and will at test to such by his/her cosignature. ATTENDING NOTE I, Reuben Epperson, have independently examined this patient and performed my own physical exam, as well as reviewed the documentation and edited where necessary. I have discussed in detail with the resident / student the findings and plan of treatment as documented by the resident / student and edited their note. I agree with their findings and treatment plan and have edited their documentation. I will continue to follow the patient during this hospital stay. CARLOS ALBERTO TOMLINSON MD Jun 01, 2020 08:53 REUBEN EPPERSON MD Jun 01, 2020 15:52
[2020-06-01] MEDS: cefTRIAXone SOD 1 GM in D5W MINI-BAG PLUS 50 ML IV SCH (16:06)
[2020-06-01 20:00] VITALS: BP 148/96
[2020-06-02] VITALS: BP 169/82
[2020-06-02] MEDS ORDERED: LORazepam 0.5 MG TAB PO STA (00:23)
[2020-06-02 01:09] LABS: ABG BASE EXCESS -2.1 (-2.0-2.0); ABG HCO3 21.7 MEQ/L (22.0-26.0); ABG O2 SATURATION 86.9 % (95.0-99.0); ABG PARTIAL PRESSURE CO2 35.1 mmHg (35.0-45.0); ABG PARTIAL PRESSURE O2 54.8 mmHg (75.0-100.0); ABG STANDARD HCO3 22.4 MEQ/L (22.0-26.0); ABG TOTAL CO2 22.8 MEQ/L (22.0-29.0); ABG pH (ARTERIAL) 7.409 UNITS (7.350-7.450)
[2020-06-02] MEDS ORDERED: hydrOXYzine 25 MG TAB PO STA (01:43)
[2020-06-02 04:00] VITALS: BP 140/96
[2020-06-02 04:58] LABS: BASO # 0.1 10^3/uL (0.0-0.2); BASO % 0.7 % (0.0-1.0); EOS % 0.1 % (0.0-3.0); LYMPH # 0.5 10^3/uL (1.5-5.0); LYMPH % 3.2 % (24.0-44.0); MEAN CORPUSCULAR HEMOGLOBIN 31.2 pg (27.0-33.0); MEAN CORPUSCULAR HGB CONC 32.7 g/dl (32.0-36.5); MEAN CORPUSCULAR VOLUME 95.4 fl (80.0-96.0); MONO # 0.4 10^3/uL (0.0-0.8); MONO % 2.6 % (0.0-5.0); NEUTROPHILS # 14.7 10^3/uL (1.5-8.5); NEUTROPHILS % 89.4 % (36.0-66.0); RED BLOOD COUNT 5.45 10^6/uL (4.30-6.10); WHITE BLOOD COUNT 16.4 10^3/uL (4.0-10.0)
[2020-06-02 05:05] LABS: PLATELET COUNT, AUTOMATED 213 10^3/uL (150-450)
[2020-06-02 05:11] LABS: INR 1.57; PROTHROMBIN TIME 19.1 SECONDS (12.5-14.3)
[2020-06-02 05:12] LABS: FIBRINOGEN 181 MG/DL (221-452); PARTIAL THROMBOPLASTIN TIME 30.3 SECONDS (24.2-38.5)
[2020-06-02 05:54] LABS: ALBUMIN 2.9 GM/DL (3.2-5.2); BILIRUBIN,TOTAL 0.5 MG/DL (0.2-1.0); C REACTIVE PROTEIN QUANTITATIV 1.6 MG/DL (0.00-0.30); CALCIUM LEVEL 8.6 MG/DL (8.5-10.1); CREATININE FOR GFR 1.7 MG/DL (0.70-1.30); GLOMERULAR FILTRATION RATE 44.6 (>56); PHOSPHORUS LEVEL 4.5 MG/DL (2.5-4.9); POTASSIUM SERUM 4.2 MEQ/L (3.5-5.1); TOTAL PROTEIN 7.2 GM/DL (6.4-8.2)
[2020-06-02 06:10] LABS: D-DIMER QUANT > 4000 ng/ml (<500)
--- NOTE | 2020-06-02 07:08 | IPNPDOC ---
Text Note Date of Service The patient was seen on 06/02/20. NOTE [facility] called at 0630. Per nursing staff, patient had stood up from bed when nurse walked in the room, walked toward staff and collapsed. Staff immediately began CPR. See CODE sheet for details on [facility]. After 24 minutes of CPR no pulse was ever obtained either manually or by doppler, the room was asked if anyone had any additional thoughts or ideas, and ultimately time of was called at 0654. VS,Fishbone, I+O VS, Fishbone, I+O Laboratory Tests 06/02/20 04:47 Vital Signs Date Time Temp Pulse Resp B/P (MAP) Pulse Ox O2 Delivery O2 Flow Rate FiO2 06/02/20 04:00 100 06/02/20 04:00 98.9 132 34 140/96 (111) 88 NIPPV (BIPAP/CPAP) 06/01/20 13:35 40.0 I&O- Last 24 Hours up to 6 AM 06/02/20 06:00 Intake Total 570 ml Output Total 800 ml Balance -230 ml GME ATTESTATION GME ATTESTATION My faculty preceptor for this patient encounter was physically present during the encounter and was fully available. All aspects of the patient interview, examination, medical decision making process, and medical care plan development were reviewed and approved by the faculty preceptor. The faculty preceptor is aware and concurs with the plan as stated in the body of this note and will attest to such by his/her cosignature. ATTENDING NOTE S: [facility] called, upon my arrival the patient was on the ground, CPR was being performed. O: patient did not have have a pulse, had electrical activity. PEA algorithm started per ACLS was followed. A/P I responded to overhead [facility]. CPR was already initiated and conducted as per ACLS protocol for PEA. Patient received 5 rounds of epinephrine. Total duration of CPR: approximately 20 minutes Intubation: intubated during code by Dr Rodrigues Result of code: Please refer to code sheet for additional details. Time of 6:54am 10/31/20 EFREN LAMAR DO Jun 02, 2020 07:08 VENANCIO MERCER MD Jun 02, 2020 23:47
[2020-06-02] MEDS ORDERED: EPINEPHrine 1MG/10ML SYRINGE 1.5IN ONE (08:53)
[2020-06-02] MEDS ORDERED: SODIUM BICARBONATE 8.4% INJ 50 ML SYRINGE ONE (08:53)
--- NOTE | 2020-06-02 18:55 | DS.PDOC ---
Discharge Summary General Date of Admission May 24, 2020 at 17:35 Date of Discharge June 02, 2020 Attending Physician: REUBEN ISAACS MD Specialist/Consultants Involve: Jaquan Scott DO, [facility] Discharge Summary PROCEDURES PERFORMED DURING STAY: ET intubation on 06/02/2020 ADMITTING DIAGNOSES / DISCHARGE DIAGNOSES: Acute hypoxic respiratory failure 2/2 COVID19 pneumonia Ventilator dependent respiratory Superimposed bacterial infection Asthma JONATAN on CKD3 HTN Gout GI prophylaxis DVT prophylaxis COMPLICATIONS/CHIEF COMPLAINT: Shortness of breath HISTORY OF PRESENT ILLNESS: Mr. Brown is a 54 year old male with asthma here for worsening shortness of b reath and fever who tested positive for COVID 19. 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 He believed he caught it from her. Otherwise, his respiratory symptoms started about 4 days prior to admission. He had worsening cough and dyspnea. He also reported an altered taste and poor oral intact. He started to have fever at home and he came to the ED. While in the ED, he desaturated down to 80% at room air. Currently requiring 6L of oxygen to maintain saturation. CXR demonstrates multifocal pneumonia and he was given ceftriaxone and azithromycin. Mr. Brown will be admitted for COVID pneumonia HOSPITAL COURSE: Mr. Brown was admitted for treatment of acute hypoxic respiratory failure secondary to Covid 19 pneumonia. He was treated with Remdesivir 5 days, dexamethasone 2 courses and weight-based Lovenox for PE prevention. He was also treated with ceftriaxone and azithromycin to cover empirically for community- acquired pneumonia. Pulmonology was called on consultation for additional assistance on 05/27/20. Despite these treatments, the patient's oxygen requirement increased and he was transitioned from high flow O2 to BiPAP. He remained on BiPAP for several days requiring 100% FiO2 oxygen. Unfortunately, on hospital day 10 the patient suffered cardiac arrest and code was called. The patient was emergently intubated and CPR was done for around 35 minutes. The patient remained pulseless and time of was eventually called. DISCHARGE MEDICATIONS: Please see below. ALLERGIES: Please see below. DISPOSITION: Vital Signs/I&Os Vital Signs Date Time Temp Pulse Resp B/P (MAP) Pulse Ox O2 Delivery O2 Flow Rate FiO2 06/02/20 04:00 100 06/02/20 04:00 98.9 132 34 140/96 (111) 88 NIPPV (BIPAP/CPAP) 06/01/20 13:35 40.0 I&O- Last 24 Hours up to 6 AM 06/02/20 06:00 Intake Total 570 ml Output Total 800 ml Balance -230 ml Laboratory Data Labs 24H Laboratory Tests 2 06/02/20 01:05: Blood Gas Bicarbonate Standard 22.4, Arterial Blood pH 7.409, Arterial Blood Partial Pressure CO2 35.1, Arterial Blood Partial Pressure O2 54.8L, Arterial Blood Total CO2 22.8, Arterial Blood HCO3 21.7L, Arterial Blood Base Excess - 2.1L, Arterial Blood Oxygen Saturation 86.9L 06/02/20 04:47: Immature Granulocyte % (Auto) 4.0H, Neutrophils (%) (Auto) 89.4H, Lymphocytes (%) (Auto) 3.2L, Monocytes (%) (Auto) 2.6, Eosinophils (%) (Auto) 0.1, Basophils (%) (Auto) 0.7, Neutrophils # (Auto) 14.7H, Lymphocytes # (Auto) 0.5L, Monocytes # (Auto) 0.4, Eosinophils # (Auto) 0.0, Basophils # (Auto) 0.1, Nucleated Red Blood Cells % (auto) 0.0, Prothrombin Time 19.1H, Prothromb Time International Ratio 1.57, Activated Partial Thromboplast Time 30.3, Fibrinogen 181L, D-Dimer, Quantitative > 4000H, Anion Gap 9, Glomerular Filtration Rate 44.6L, Calcium Level 8.6, Phosphorus Level 4.5#, Ferritin 1866H, Total Bilirubin 0.5, Aspartate Amino Transf (AST/SGOT) 103H, Alanine Aminotransferase (ALT/SGPT) 67, Alkaline Phosphatase 162H, Lactate Dehydrogenase 1433H, Total Creatine Kinase 420#H, C- Reactive Protein, Quantitative 1.60H, HR-Yrm-Y-Type Natriuretic Peptide 276H, Total Protein 7.2, Albumin 2.9L, Albumin/Globulin Ratio 0.7, Triglycerides Level 495H, Cholesterol Level 129 CBC/BMP Laboratory Tests 06/02/20 04:47 Microbiology Microbiology 05/24/20 Blood Culture - Final, Complete NO GROWTH AFTER 5 DAYS 05/24/20 Blood Culture - Final, Complete NO GROWTH AFTER 5 DAYS Discharge Medications Scheduled Allopurinol (Zyloprim) 300 Mg Tablet, 300 MG PO DAILY, (Reported) Amlodipine Besylate (Amlodipine Besylate) 10 Mg Tablet, 10 MG PO DAILY, (Reported) Scheduled PRN Acetaminophen (Acetaminophen) 325 Mg Tablet, 650 MG PO Q4H PRN for PAIN OR FEVER, (Reported) Allergies Coded Allergies: No Known Allergies (Unverified , 11/19/19) GME ATTESTATION GME ATTESTATION My faculty preceptor for this patient encounter was physically present during the encounter and was fully available. All aspects of the patient interview, examination, medical decision making process, and medical care plan development were reviewed and approved by the faculty preceptor. The faculty preceptor is aware and concurs with the plan as stated in the body of this note and will attest to such by his/her cosignature. ATTENDING NOTE I, Reuben Isaacs, have independently examined this patient and performed my own physical exam, as well as reviewed the documentation and edited where necessary. I have discussed in detail with the resident / student the findings and plan of treatment as documented by the resident / student and edited their note. I agree with their findings and treatment plan and have edited their documentation. I will continue to follow the patient during this hospital stay. CARLOS ALBERTO TOMLINSON MD Jun 02, 2020 18:54 REUBEN ISAACS MD Jun 03, 2020 14:31
== END 2020-06-02 08:54 | disposition expired | DRG 137 ==
LOC: M ED 12:55 → M ED INP 17:35 → M 4MAIN 20:00 → M ICU 05-25 22:54
PROVIDERS: ADMIT Internal Medicine; ATTEND Internal Medicine
DX: U07.1 COVID-19 (principal); J96.01 Acute respiratory failure with hypoxia; I26.99 Other pulmonary embolism without acute cor pulmonale; N17.9 Acute kidney failure, unspecified; J12.89 Other viral pneumonia; E66.01 Morbid (severe) obesity due to excess calories; N18.30 Chronic kidney disease, stage 3 unspecified; M10.9 Gout, unspecified; I12.9 Hypertensive chronic kidney disease with stage 1 through stage 4 chronic kidney disease, or unspecified chronic kidney disease; J45.909 Unspecified asthma, uncomplicated; E78.00 Pure hypercholesterolemia, unspecified